=== PATIENT | male | born 1950 | race Caucasian/White ===

== ENCOUNTER 2017-12-01 09:18 | Day surgery (SDC) | payer MEDICARE, BC ==
[2017-12-01] MEDS ORDERED: Midazolam 1 MG/ML 2 ML SDV IV ONE (09:19)
[2017-12-01] MEDS ORDERED: Dexamethasone 4 MG/ML SDV IV ONE (09:19)
[2017-12-01] MEDS ORDERED: Sodium Chloride 0.9% 10 ML Syringe IV ONE (09:19)
[2017-12-01] MEDS ORDERED: Cataract Ophth Solution EYELF ONE (09:30)
[2017-12-01] MEDS ORDERED: Proparacaine 0.5% Ophth Soln 15 ML Bottle EYELF ONE (09:30)
[2017-12-01] MEDS ORDERED: Sodium Chloride 0.9% 10 ML Syringe FLUSH PRN (09:30)
[2017-12-01] MEDS ORDERED: Ondansetron 4 MG/2 ML SDV IVPUSH PRN (09:30)
[2017-12-01] MEDS ORDERED: Povidone-Iodine 5% Sterile Ophth Soln 30 ML Bottle EYELF ONE ×2 (09:30→10:18)
[2017-12-01] MEDS ORDERED: Moxifloxacin 0.5% Ophth Soln 3 ML Bottle EYELF ONE (09:30)
[2017-12-01] MEDS ORDERED: Timolol Maleate 0.5% Ophth Soln 5 ML Bottle EYELF ONE (09:30)
[2017-12-01] MEDS ORDERED: Phenylephrine 10% Ophth Soln 5 ML Bot EYELF PRN (09:30)
[2017-12-01] MEDS ORDERED: Phenylephrine 10% Ophth Soln 5 ML Bot EYELF ONE (09:30)
[2017-12-01] MEDS ORDERED: Acetaminophen 325 MG Tab PO PRN (09:30)
[2017-12-01] MEDS ORDERED: Tetracaine HCl/PF 0.5% 4 ML Bottle EYELF ONE (10:18)
[2017-12-01] MEDS ORDERED: Apraclonidine 0.5% Ophth Soln 5 ML Bot EYELF ONE (10:19)
[2017-12-01] MEDS ORDERED: Lidocaine 1% 30 ML SDV ONE (10:19)
[2017-12-01] MEDS ORDERED: Vancomycin 500 MG SDV EYELF ONE (10:20)
[2017-12-01] MEDS ORDERED: Balanced Salt Solution Ophth Irrig 500 ML Bottle IOCULAR ONE (10:20)
[2017-12-01] MEDS ORDERED: Dexamethasone/Neomycin/Polymyxin B Ophth Oint 3.5 GM Tube EYELF ONE (10:20)
[2017-12-01] MEDS ORDERED: Chondroitin Sulfate/Hyaluronate Sodium Ophth Inj 0.75 ML Syringe EYELF ONE (10:21)
--- NOTE | 2017-12-01 16:33 | OR ---
DATE: 12/01/2017 PREOPERATIVE DIAGNOSIS: Visually significant mixed cataract, left eye. POSTOPERATIVE DIAGNOSIS: Visually significant mixed cataract, left eye. PROCEDURE: Extracapsular cataract extraction with intraocular lens implant, left eye. ANESTHESIA: Topical/local MAC. COMPLICATIONS: None. INDICATION: Mr. Barton was seen in the clinic. He has complained of a progressive decrease in vision. Clinical examination reveals best spectacle corrected vision of 20/40, oncoming light reveals a visual acuity of 20/70. Examination reveals mixed nuclear central cortical and posterior capsular cataract. I explained options to Mr. Barton. I offered cataract surgery and I explained risks, including, but not limited to, infection, retinal detachment, loss of vision, need for additional surgery, and risks associated with anesthesia. We discussed implant options. He has requested a multifocal implant. He understands the increased potential for glare, halo, and dysphotopsia. He also understands that he may still require glasses for some limited activities. No complications occurred. OPERATIVE DESCRIPTION: After informed consent was obtained and the risks, benefits, and alternatives were explained, the patient was brought to the operative suite and topical anesthesia was administered. The patient was then prepped and draped in the sterile fashion and attention was placed on the left eye. A sterile lid speculum was placed into the left eye to allow operative exposure. A full-thickness paracentesis was made in the temporal portion of the operative eye. Preservative-free lidocaine 0.1 mL was injected into the anterior chamber followed by viscoelastic. A full-thickness corneal incision was then made into the anterior chamber. A bent needle cystotome was used to create a small mercedes in the anterior capsule. The capsulorrhexis forceps was then used to create a 360-degree curvilinear capsulorrhexis. The nucleus was then removed using a phacoemulsification handpiece and the remaining cortical material was then removed with irrigation and aspiration handpiece. Following removal of the cortical material, the capsular bag was then inspected and noted to be free of any holes or tears. Viscoelastic was then injected into the capsular bag and the intraocular lens was inserted into the capsular bag. The viscoelastic material was then removed from both the anterior and posterior chambers and from behind the IOL. The lens and capsular bag were then reinspected. The IOL was well centered and the capsular bag intact. The wound and paracentesis sites were inspected and hydrated with balanced saline solution. Both were found to be self- sealing. The intraocular pressure was assessed digitally and found to be within normal range. A good red reflex was noted at the completion of the procedure. No complications occurred during the operation. At the completion of the procedure, Maxitrol, Voltaren, and Iopidine drops were placed into the operative eye. A sterile eye shield was placed over the operative eye and the patient was transported to the postoperative recovery area having tolerated the procedure well. Postoperative instructions were given along with a postoperative appointment. The patient was advised to call with any questions or concerns. [facility] /[id number]
== END 2017-12-01 11:33 | disposition home or self-care (01) ==
LOC: DL.SDS 09:18
PROVIDERS: ATTEND Ophthalmology
DX: H25.812 Combined forms of age-related cataract, left eye (principal); E11.36 Type 2 diabetes mellitus with diabetic cataract; I10 Essential (primary) hypertension; J45.909 Unspecified asthma, uncomplicated; E78.00 Pure hypercholesterolemia, unspecified; E66.9 Obesity, unspecified; N40.1 Benign prostatic hyperplasia with lower urinary tract symptoms; Z68.35 Body mass index [BMI] 35.0-35.9, adult; Z79.4 Long term (current) use of insulin; Z79.899 Other long term (current) drug therapy; Z88.8 Allergy status to other drugs, medicaments and biological substances; Z87.891 Personal history of nicotine dependence
CPT/HCPCS: 66984; A9270; J3370; J7050; 00142; J1100; J2250; V2788

== ENCOUNTER 2017-12-22 10:56 | Day surgery (SDC) | payer MEDICARE, BC ==
[2017-12-22] MEDS ORDERED: Midazolam 1 MG/ML 2 ML SDV IV ONE (10:57)
[2017-12-22] MEDS ORDERED: Sodium Chloride 0.9% 10 ML Syringe IV ONE (10:57)
[2017-12-22] MEDS ORDERED: Dexamethasone 4 MG/ML SDV IV ONE (10:57)
[2017-12-22] MEDS ORDERED: Ondansetron 4 MG/2 ML SDV IVPUSH PRN (11:00)
[2017-12-22] MEDS ORDERED: Acetaminophen 325 MG Tab PO PRN (11:00)
[2017-12-22] MEDS ORDERED: Phenylephrine 10% Ophth Soln 5 ML Bot EYERT PRN (11:00)
[2017-12-22] MEDS ORDERED: Timolol Maleate 0.5% Ophth Soln 5 ML Bottle EYERT ONE (11:00)
[2017-12-22] MEDS ORDERED: Povidone-Iodine 5% Sterile Ophth Soln 30 ML Bottle EYERT ONE ×2 (11:00→11:38)
[2017-12-22] MEDS ORDERED: Proparacaine 0.5% Ophth Soln 15 ML Bottle EYERT ONE (11:00)
[2017-12-22] MEDS ORDERED: Cataract Ophth Solution EYERT ONE (11:00)
[2017-12-22] MEDS ORDERED: Phenylephrine 10% Ophth Soln 5 ML Bot EYERT ONE (11:00)
[2017-12-22] MEDS ORDERED: Moxifloxacin 0.5% Ophth Soln 3 ML Bottle EYERT ONE (11:00)
[2017-12-22] MEDS: Sodium Chloride 0.9% 10 ML Syringe FLUSH PRN ×2 (11:27→11:31)
[2017-12-22] MEDS ORDERED: Povidone-Iodine 5% Sterile Ophth Soln 30 ML Bottle ONE (11:35)
[2017-12-22] MEDS ORDERED: Tetracaine HCl/PF 0.5% 4 ML Bottle EYERT ONE (11:37)
[2017-12-22] MEDS ORDERED: Lidocaine 1% 30 ML SDV INJECT ONE (11:44)
[2017-12-22] MEDS ORDERED: Vancomycin 500 MG SDV EYERT ONE (11:46)
[2017-12-22] MEDS ORDERED: Balanced Salt Solution Ophth Irrig 500 ML Bottle IOCULAR ONE (11:47)
[2017-12-22] MEDS ORDERED: Chondroitin Sulfate/Hyaluronate Sodium Ophth Inj 0.75 ML Syringe EYELF ONE (11:49)
[2017-12-22] MEDS ORDERED: Apraclonidine 0.5% Ophth Soln 5 ML Bot EYERT ONE (11:55)
[2017-12-22] MEDS ORDERED: Dexamethasone/Neomycin/Polymyxin B Ophth Oint 3.5 GM Tube EYERT ONE (11:56)
--- NOTE | 2017-12-22 12:17 | OR ---
DATE: 12/22/2017 PREOPERATIVE DIAGNOSIS: Visually significant mixed cataract, right eye. POSTOPERATIVE DIAGNOSIS: Visually significant mixed cataract, right eye. PROCEDURE: Extracapsular cataract extraction with intraocular lens implant, right eye. ANESTHESIA: Topical/local MAC. COMPLICATIONS: None. INDICATION: Mr. Barton was seen in the clinic. He has complained of a progressive change in vision. His clinical examination reveals visually significant mixed cataract. I explained options; I offered cataract surgery; and I explained risks including but not limited to infection, retinal detachment, loss of vision, and need for additional surgery amongst others. We discussed implant options. He has requested a Symfony implant. I did explain the increased potential for glare halo and dysphotopsia. He is symptomatic, voiced an understanding, and requested the Symfony implant. OPERATIVE DESCRIPTION: After informed consent was obtained and the risks, benefits, and alternatives were explained, the patient was brought to the operative suite and topical anesthesia was administered. The patient was then prepped and draped in the sterile fashion, and attention was placed on the right eye. A sterile lid speculum was placed into the right eye to allow operative exposure. A full-thickness paracentesis was made in the temporal portion of the operative eye. Preservative-free lidocaine 0.1 mL was injected into the anterior chamber followed by viscoelastic. A full-thickness corneal incision was then made into the anterior chamber. A bent needle cystotome was used to create a small mercedes in the anterior capsule. The capsulorrhexis forceps was then used to create a 360-degree curvilinear capsulorrhexis. The nucleus was then removed using a phacoemulsification handpiece, and the remaining cortical material was then removed with irrigation and aspiration handpiece. Following removal of the cortical material, the capsular bag was then inspected and noted to be free of any holes or tears. Viscoelastic was then injected into the capsular bag, and the intraocular lens was inserted into the capsular bag. The implant was oriented to correspond with preoperative corneal osullivan made with the patient in the upright position. The viscoelastic material was then removed from both the anterior and posterior chambers and from behind the IOL. The lens and capsular bag were then reinspected. The IOL was well centered and the capsular bag intact. The wound and paracentesis sites were inspected and hydrated with balanced saline solution. Both were found to be self-sealing. The intraocular pressure was assessed digitally and found to be within normal range. A good red reflex was noted at the completion of the procedure. No complications occurred during the operation. At the completion of the procedure, Maxitrol, Voltaren, and Iopidine drops were placed into the operative eye. A sterile eye shield was placed over the operative eye, and the patient was transported to the postoperative recovery area having tolerated the procedure well. Postoperative instructions were given along with a postoperative appointment. The patient was advised to call with any questions or concerns. [facility] /[id number]
== END 2017-12-22 12:45 | disposition home or self-care (01) ==
LOC: DL.SDS 10:56
PROVIDERS: ATTEND Ophthalmology
DX: H26.9 Unspecified cataract (principal); I10 Essential (primary) hypertension; E11.65 Type 2 diabetes mellitus with hyperglycemia; E78.1 Pure hyperglyceridemia; M51.34 Other intervertebral disc degeneration, thoracic region; E66.9 Obesity, unspecified; N40.1 Benign prostatic hyperplasia with lower urinary tract symptoms; J45.909 Unspecified asthma, uncomplicated; Z90.49 Acquired absence of other specified parts of digestive tract; Z79.4 Long term (current) use of insulin; Z79.899 Other long term (current) drug therapy; Z79.82 Long term (current) use of aspirin; Z88.8 Allergy status to other drugs, medicaments and biological substances; Z68.39 Body mass index [BMI] 39.0-39.9, adult; Z87.891 Personal history of nicotine dependence
CPT/HCPCS: 00140; 66984; A9270; J1100; J2250; J3370; J7050; V2787

== ENCOUNTER 2019-05-02 10:25 | Emergency (ER) | payer MEDICARE, BC ==
[~2019-05-02 10:25] MED LIST: Sodium Chloride 0.9% 10 ML Syringe FLUSH PRN
[2019-05-02] MEDS ORDERED: 50% Dextrose in Water 50 ML Syringe IVPUSH ONE (10:35)
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
[2019-05-02] MEDS ORDERED: Sodium Chloride 0.9% 1,000 ML IV ONE (10:53)
[2019-05-02 11:08] LABS: ANION GAP 11.6; CHLORIDE,CL 100 mmol/L (101-111); SODIUM,NA 139 mmol/L (135-145)
== END 2019-05-02 12:56 | disposition home or self-care (01) ==
LOC: DL.ED 10:25
DX: J06.9 Acute upper respiratory infection, unspecified (principal); E11.649 Type 2 diabetes mellitus with hypoglycemia without coma; I10 Essential (primary) hypertension; E78.00 Pure hypercholesterolemia, unspecified; J45.909 Unspecified asthma, uncomplicated; Z91.040 Latex allergy status; Z88.8 Allergy status to other drugs, medicaments and biological substances; Z79.82 Long term (current) use of aspirin; Z79.899 Other long term (current) drug therapy; Z79.4 Long term (current) use of insulin
CPT/HCPCS: 36415; 71046; 80053; 81003; 82962; 84484; 85025; 85610; 93005; 96361; 96374; 99285-25; G0480; J7030; J7060

== ENCOUNTER 2019-10-14 22:02 | Emergency (ER) | payer MEDICARE, BC ==
[2019-10-14] MEDS ORDERED: Sodium Chloride 0.9% 10 ML Syringe FLUSH PRN (22:27)
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
[2019-10-14 23:04] LABS: ANION GAP 14.8; CHLORIDE,CL 96 mmol/L (101-111); SODIUM,NA 133 mmol/L (135-145)
== END 2019-10-15 04:10 | disposition home or self-care (01) ==
LOC: DL.ED 22:02
DX: G89.18 Other acute postprocedural pain (principal); M25.561 Pain in right knee; E11.9 Type 2 diabetes mellitus without complications; E78.00 Pure hypercholesterolemia, unspecified; I10 Essential (primary) hypertension; E66.9 Obesity, unspecified; Z68.39 Body mass index [BMI] 39.0-39.9, adult; J45.909 Unspecified asthma, uncomplicated; Z91.040 Latex allergy status; Z88.8 Allergy status to other drugs, medicaments and biological substances; Z79.4 Long term (current) use of insulin; Z79.899 Other long term (current) drug therapy
CPT/HCPCS: 36415; 73560-RT; 80053; 83605; 85025; 85379; 85651; 86140; 87040; 93971; 99283; 99284-25

== ENCOUNTER 2020-01-22 08:41 | Emergency (ER) | payer MEDICARE, BC ==
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
[2020-01-22] MEDS ORDERED: Sodium Chloride 0.9% 10 ML Syringe FLUSH PRN (09:15)
[2020-01-22 09:53] LABS: CHLORIDE,CL 97 mmol/L (98-107); SODIUM,NA 136 mmol/L (136-145)
--- NOTE | 2020-01-22 10:30 | CR ---
PROCEDURE INFORMATION: Exam: XR Chest, 2 Views Exam date and time: 01/22/2020 9:28 AM Age: 69 years old Clinical indication: Shortness of breath; Additional info: SOB TECHNIQUE: Imaging protocol: XR of the chest Views: 2 views. COMPARISON: CR Chest 2V 05/02/2019 11:52 AM FINDINGS: Lungs: Unremarkable. No consolidation. Pleural space: Unremarkable. No pleural effusion. No pneumothorax. Heart/Mediastinum: The cardiomediastinal silhouette is fairly stable in appearance. Bones/joints: Degenerative changes again involve the spine. IMPRESSION: No evidence for acute pulmonary disease.
--- NOTE | 2020-01-22 11:58 | CT ---
PROCEDURE INFORMATION: Exam: CT Abdomen And Pelvis Without Contrast Exam date and time: 01/22/2020 11:38 AM Age: 69 years old Clinical indication: Abdominal pain; Flank; Right; Prior surgery; Surgery date: 6+ months; Surgery type: Gallbladder removed; Patient HX: History of renal stones in 1998; Additional info: Right flank pain, wbc 13.0 TECHNIQUE: Imaging protocol: Computed tomography of the abdomen and pelvis without contrast. Radiation optimization: All CT scans at this facility use at least one of these dose optimization techniques: automated exposure control; mA and/or kV adjustment per patient size (includes targeted exams where dose is matched to clinical indication); or iterative reconstruction. COMPARISON: CT - Chest Abdomen Pelvis w Cont 02/12/2019 10:42:15 PM FINDINGS: Limitations: Evaluation is somewhat limited by lack of IV contrast. Lungs: There is mild atelectasis/scarring at the right lung base, with minor atelectasis at the left base. Liver: The liver is fatty in density. It again has a mildly nodular contour, as may be seen with cirrhosis. Gallbladder and bile ducts: Cholecystectomy clips are present. Pancreas: Grossly unremarkable. Spleen: Grossly unremarkable. Adrenals: Grossly unremarkable. Kidneys and ureters: There is no hydronephrosis, and no renal or ureteral calculus is identified. The right kidney appears grossly unremarkable. The left kidney again contains a 2.5 cm cyst, not requiring follow-up. It appears otherwise grossly unremarkable. Stomach and bowel: The unopacified small bowel is not significantly distended to suggest obstruction. There is again mild descending and moderate sigmoid colonic diverticulosis without evidence for diverticulitis. The large bowel is otherwise grossly unremarkable in appearance. Appendix: The appendix appears normal. Intraperitoneal space: No free air or significant free fluid. Vasculature: The abdominal aorta is nonaneurysmal. Atherosclerotic vascular calcifications are again present. Lymph nodes: No gross pathologic lymphadenopathy. Bladder: Grossly unremarkable. Reproductive: Unremarkable as visualized. Bones/joints: Degenerative changes again involve the spine and hips. There are similar areas of curvilinear sclerosis in the bilateral femoral heads, compatible with avascular necrosis. There is no collapse of the articular contour of the femoral heads. Soft tissues: Small fat containing umbilical and bilateral inguinal hernias are again present. IMPRESSION: 1. No hydronephrosis or renal or ureteral calculus. 2. Fatty liver. As on 07/07/19, it has a mildly nodular contour, as may be seen with cirrhosis. 3. Persistent left-sided colonic diverticulosis without evidence for diverticulitis. 4. Similar small fat containing umbilical and bilateral inguinal hernias. 5. Other stable nonurgent findings as described. COMMENTS: Depending on suspected etiology of symptoms, consider a targeted ultrasound or contrast enhanced exam.
== END 2020-01-22 12:50 | disposition home or self-care (01) ==
LOC: DL.ED 08:41
DX: R10.9 Unspecified abdominal pain (principal); E11.10 Type 2 diabetes mellitus with ketoacidosis without coma; I10 Essential (primary) hypertension; E66.9 Obesity, unspecified; J45.909 Unspecified asthma, uncomplicated; Z79.4 Long term (current) use of insulin; Z88.8 Allergy status to other drugs, medicaments and biological substances; Z91.040 Latex allergy status; Z79.82 Long term (current) use of aspirin; Z79.899 Other long term (current) drug therapy; Z68.36 Body mass index [BMI] 36.0-36.9, adult
CPT/HCPCS: 36415; 71046; 74176; 80053; 81001; 83880; 84484; 85025; 99283; 99285-25

== ENCOUNTER 2020-06-09 14:31 | Emergency (ER) | payer MEDICARE, BC ==
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
[2020-06-09] MEDS ORDERED: Albuterol 6.7 GM Inhaler INH ONE (14:50)
[2020-06-09] MEDS ORDERED: Famotidine 20 MG Tab PO ONE (14:52)
--- NOTE | 2020-06-09 15:24 | CR ---
PROCEDURE INFORMATION: Exam: XR Chest, 1 View Exam date and time: 06/09/2020 3:10 PM Age: 69 years old Clinical indication: Other: Copd; Additional info: Covid +, HX copd TECHNIQUE: Imaging protocol: XR of the chest Views: 1 view. COMPARISON: CT Chest w Cont 01/23/2020 3:37 PM FINDINGS: Lungs: Patchy airspace density is present within the right lower lobe. Finding is concerning for pneumonia. This could be related the patient's known COVID-19 infection. Pleural space: Unremarkable. No pleural effusion. No pneumothorax. Heart/Mediastinum: Unremarkable. No cardiomegaly. Bones/joints: Unremarkable. IMPRESSION: 1. Multilobar pneumonia compatible with COVID-19.
[2020-06-09 15:57] LABS: ANION GAP 13.4 mEq/L (7-13); CHLORIDE,CL 92 mmol/L (98-107); SODIUM,NA 131 mmol/L (136-145)
== END 2020-06-09 18:10 | disposition home or self-care (01) ==
LOC: DL.ED 14:31
DX: U07.1 COVID-19 (principal); I12.9 Hypertensive chronic kidney disease with stage 1 through stage 4 chronic kidney disease, or unspecified chronic kidney disease; E11.22 Type 2 diabetes mellitus with diabetic chronic kidney disease; N18.9 Chronic kidney disease, unspecified; E66.9 Obesity, unspecified; E78.00 Pure hypercholesterolemia, unspecified; J45.909 Unspecified asthma, uncomplicated; Z87.09 Personal history of other diseases of the respiratory system; M19.90 Unspecified osteoarthritis, unspecified site; Z79.82 Long term (current) use of aspirin; Z79.899 Other long term (current) drug therapy; Z79.4 Long term (current) use of insulin; Z91.040 Latex allergy status; Z88.8 Allergy status to other drugs, medicaments and biological substances; Z88.6 Allergy status to analgesic agent
CPT/HCPCS: 36415; 71045; 80053; 82728; 83605; 84484; 85025; 85379; 85610; 85730; 86140; 99284; A9270

== ENCOUNTER 2020-07-26 14:43 | Observation (INO) | payer MEDICARE, BC ==
[2020-07-26] MEDS ORDERED: Ondansetron 4 MG/2 ML SDV IVPUSH PRN (15:19)
[2020-07-26] MEDS ORDERED: 50% Dextrose in Water 50 ML Syringe IV PRN (16:29)
[2020-07-26] MEDS ORDERED: Glucagon,Human Recombinant 1 MG Vial IM PRN (16:29)
[2020-07-26] MEDS ORDERED: methylPREDNISolone Sodium Succinate 125 MG/2 ML SDV IVPUSH ONE (16:30)
[2020-07-26] MEDS ORDERED: Metoclopramide 10 MG/2 ML SDV IVPUSH ONE (16:30)
[2020-07-26] MEDS: Sodium Chloride 0.9% 1,000 ML IV SCH (17:46)
[2020-07-26] MEDS: cefTRIAXone 1 GM in Sodium Chloride 0.9% 50 ML IV SCH (18:04)
--- NOTE | 2020-07-26 18:06 | CR ---
PROCEDURE INFORMATION: Exam: XR Chest, 1 View Exam date and time: 07/26/2020 5:51 PM Age: 70 years old Clinical indication: Cough TECHNIQUE: Imaging protocol: XR of the chest Views: 1 view. COMPARISON: CR Chest 1V Frontal 06/09/2020 3:10 PM FINDINGS: Lungs: No suspicious pulmonary nodules or areas of lung consolidation. Pleural space: Costophrenic angles are sharp. No pneumothorax. Heart/Mediastinum: Unremarkable. No cardiomegaly. Bones/joints: Age appropriate. IMPRESSION: 1. No active disease of the chest. 2. No significant interval change when compared to the CR Chest 1V Frontal 06/09/2020 3:10 PM.
[2020-07-26] MEDS: Acetaminophen 325 MG Tab PO PRN (18:16)
[2020-07-26] MEDS ORDERED: Sodium Chloride 0.9% 10 ML Syringe FLUSH PRN (18:20)
[2020-07-26] MEDS ORDERED: Albuterol 6.7 GM Inhaler INH PRN (18:38)
[2020-07-26] MEDS ORDERED: FLUTICASONE FUROATE NASBOTH PRN (18:38)
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
[2020-07-26] MEDS: Azithromycin 500 MG in Sodium Chloride 0.9% 250 ML IV SCH (18:50)
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
[2020-07-26] MEDS: predniSONE 5 MG Tab PO SCH (21:53)
[2020-07-26] MEDS: Insulin Glarg,Human.Rec.Analog 100 Unit/ML SUBCUT SCH (22:00)
[2020-07-26] MEDS: Hydrochlorothiazide 25 MG Tab PO SCH (22:01)
[2020-07-26] MEDS: Tamsulosin 0.4 MG Cap.ER PO SCH (22:01)
[2020-07-26] MEDS: Montelukast 10 MG Tab PO SCH (22:02)
[2020-07-27 07:05] LABS: ANION GAP 17.4 mEq/L (7-13); CHLORIDE,CL 96 mmol/L (98-107); SODIUM,NA 136 mmol/L (136-145)
[2020-07-27] MEDS: Sodium Chloride 0.9% 1,000 ML IV SCH (08:53)
[2020-07-27] MEDS ORDERED: Non-Formulary Medication 1 Each (Canagliflozin [Invokana] 300 MG) PO SCH (09:00)
[2020-07-27] MEDS ORDERED: Potassium Chloride 10 MEQ Tab.ER PO ONE (09:22)
--- NOTE | 2020-07-27 10:45 | PCM.PN ---
- General Info Date of Service: 07/27/20 Subjective Update: Patient has no new complaint today Indicates the headache has improved Also denies having left ear pain. No fever and no chills. - Review of Systems General: Reports: Weakness, Malaise HEENT: Reports: No Symptoms Pulmonary: Reports: No Symptoms Cardiovascular: Reports: No Symptoms Gastrointestinal: Reports: No Symptoms Musculoskeletal: Reports: No Symptoms - Patient Data Vitals - Most Recent: Last Vital Signs Temp 35.8 C L 07/27/20 08:00 Pulse 80 07/27/20 08:00 Resp 20 07/27/20 08:00 BP 130/66 07/27/20 08:00 Pulse Ox 94 L 07/27/20 08:00 Weight - Most Recent: 97.704 kg I&O - Last 24 Hours: Intake & Output 07/26/20 07/27/20 07/27/20 22:59 06:59 14:59 Intake Total 250 450 Output Total 100 300 Balance 150 150 Lab Results Last 24 Hours: Laboratory Results - last 24 hr 07/26/20 07/26/20 07/26/20 Range/Units 16:20 17:08 20:55 WBC (5.0-10.0) 10^3/uL RBC (4.6-6.2) 10^6/uL Hgb (14.0-18.0) g/dL Hct (40.0-54.0) % MCV (80-100) fL MCH (27.0-34.0) pg MCHC (33.0-35.0) g/dL Plt Count (150-450) 10^3/uL Neut % (Auto) (42.2-75.2) % Lymph % (Auto) (20.5-50.1) % Travis % (Auto) (2-8) % Eos % (Auto) (1.0-3.0) % Baso % (Auto) (0.0-1.0) % Add Manual Diff Neutrophils % (Manual) (42-75) % Band Neutrophils % % Lymphocytes % (Manual) (20-50) % Monocytes % (Manual) (2-8) % Sodium (136-145) mmol/L Potassium (3.5-5.1) mmol/L Chloride (98-107) mmol/L Carbon Dioxide (21-32) mmol/L Anion Gap (7-13) mEq/L BUN (7-18) mg/dL Creatinine (0.70-1.30) mg/dL Est Cr Clr Drug Dosing mL/min Estimated GFR (MDRD) BUN/Creatinine Ratio (No establ ref range) Glucose (74-99) mg/dL POC Glucose 122 H 179 H (70-105) mg/dl Calcium (8.5-10.1) mg/dL Total Bilirubin (0.2-1.0) mg/dL AST (15-37) U/L ALT (16-63) U/L Alkaline Phosphatase (46-116) U/L Total Protein (6.4-8.2) g/dL Albumin (3.4-5.0) g/dL Globulin Albumin/Globulin Ratio Urine Color Yellow (YELLOW) Urine Appearance Clear (CLEAR) Urine pH 6.0 (5.0-9.0) Ur Specific [place] 1.015 (1.005-1.030) Urine Protein 30 H (NEGATIVE) Urine Glucose (UA) 500 H (NEGATIVE) Urine Ketones Negative (NEGATIVE) Urine Occult Blood Trace-lysed H (NEGATIVE) Urine Nitrite Negative (NEGATIVE) Urine Bilirubin Negative (NEGATIVE) Urine Urobilinogen 0.2 (0.2-1.0) mg/dL Ur Leukocyte Esterase Negative (NEGATIVE) Urine RBC 0-5 /HPF Urine WBC Not seen (0-5/HPF) /HPF Ur Epithelial Cells Few (NOT SEEN) /HPF Urine Bacteria Rare (0-FEW/HPF) /HPF Urine Yeast Few H (NOT SEEN) /HPF 07/27/20 07/27/20 07/27/20 Range/Units 06:02 06:02 07:54 WBC 10.7 H (5.0-10.0) 10^3/uL RBC 3.87 L (4.6-6.2) 10^6/uL Hgb 12.2 L D (14.0-18.0) g/dL Hct 36.3 L (40.0-54.0) % MCV 93.8 (80-100) fL MCH 31.5 (27.0-34.0) pg MCHC 33.6 (33.0-35.0) g/dL Plt Count 251 D (150-450) 10^3/uL Neut % (Auto) 86.9 H (42.2-75.2) % Lymph % (Auto) 6.4 L (20.5-50.1) % Travis % (Auto) 6.0 (2-8) % Eos % (Auto) 0.0 L (1.0-3.0) % Baso % (Auto) 0.7 (0.0-1.0) % Add Manual Diff Yes Neutrophils % (Manual) 79 H (42-75) % Band Neutrophils % 12 % Lymphocytes % (Manual) 7 L (20-50) % Monocytes % (Manual) 2 (2-8) % Sodium 136 (136-145) mmol/L Potassium 3.4 L (3.5-5.1) mmol/L Chloride 96 L (98-107) mmol/L Carbon Dioxide 26 (21-32) mmol/L Anion Gap 17.4 H (7-13) mEq/L BUN 19 H (7-18) mg/dL Creatinine 1.09 (0.70-1.30) mg/dL Est Cr Clr Drug Dosing 62.92 mL/min Estimated GFR (MDRD) > 60 BUN/Creatinine Ratio 17.4 (No establ ref range) Glucose 159 H (74-99) mg/dL POC Glucose 146 H (70-105) mg/dl Calcium 9.3 (8.5-10.1) mg/dL Total Bilirubin 0.3 (0.2-1.0) mg/dL AST 8 L (15-37) U/L ALT 14 L (16-63) U/L Alkaline Phosphatase 39 L (46-116) U/L Total Protein 7.5 (6.4-8.2) g/dL Albumin 2.8 L (3.4-5.0) g/dL Globulin 4.7 Albumin/Globulin Ratio 0.60 Urine Color (YELLOW) Urine Appearance (CLEAR) Urine pH (5.0-9.0) Ur Specific [place] (1.005-1.030) Urine Protein (NEGATIVE) Urine Glucose (UA) (NEGATIVE) Urine Ketones (NEGATIVE) Urine Occult Blood (NEGATIVE) Urine Nitrite (NEGATIVE) Urine Bilirubin (NEGATIVE) Urine Urobilinogen (0.2-1.0) mg/dL Ur Leukocyte Esterase (NEGATIVE) Urine RBC /HPF Urine WBC (0-5/HPF) /HPF Ur Epithelial Cells (NOT SEEN) /HPF Urine Bacteria (0-FEW/HPF) /HPF Urine Yeast (NOT SEEN) /HPF Med Orders - Current: Current Medications Acetaminophen (Tylenol) 650 mg PO Q4H PRN PRN Reason: Pain (Mild 1-3)/fever Last Admin: 07/26/20 18:16 Dose: 650 mg Documented by: Albuterol (Proventil Hfa) 0 gm INH Q4H PRN PRN Reason: Shortness of Breath Dextrose/Water (Dextrose 50% In Water) 50 ml IV ASDIRECTED PRN PRN Reason: Hypoglycemia Enoxaparin Sodium (Lovenox) 40 mg SUBCUT DAILY [facility] Finasteride (Proscar) 5 mg PO DAILY [facility] Glucagon (Glucagen) 1 mg IM ASDIRECTED PRN PRN Reason: Hypoglycemia Hydrochlorothiazide (Hydrochlorothiazide) 25 mg PO DAILY [facility] Last Admin: 07/26/20 22:01 Dose: 25 mg Documented by: Sodium Chloride (Normal Saline) 1,000 mls @ 75 mls/hr IV ASDIRECTED [facility] Last Admin: 07/27/20 08:53 Dose: 75 mls/hr Documented by: Ceftriaxone Sodium 1 gm/ (Sodium Chloride) 50 mls @ 100 mls/hr IV Q24H [facility] Last Admin: 07/26/20 18:04 Dose: 100 mls/hr Documented by: Azithromycin 500 mg/ Sodium (Chloride) 250 mls @ 250 mls/hr IV Q24H [facility] Last Infusion: 07/26/20 19:50 Dose: Infused Documented by: Insulin Glargine (Lantus) 60 unit SUBCUT BEDTIME [facility] Last Admin: 07/26/20 22:00 Dose: 60 units Documented by: Losartan Potassium (Cozaar) 25 mg PO DAILY [facility] Magnesium Oxide (Magnesium Oxide) 500 mg PO DAILY [facility] Montelukast Sodium (Singulair) 10 mg PO BEDTIME [facility] Last Admin: 07/26/20 22:02 Dose: 10 mg Documented by: Non-Formulary Medication (Canagliflozin [Invokana]) 300 mg PO DAILY [facility] Non-Formulary Medication (Fluticasone Furoate [Flonase Sensimist]) 1 mcg NASBOTH BID PRN PRN Reason: Allergies Non-Formulary Medication (Cetirizine [Zyrtec]) 10 mg PO DAILY [facility] Ondansetron HCl (Zofran) 4 mg IVPUSH Q6H PRN PRN Reason: Nausea/Vomiting Prednisone (Prednisone) 5 mg PO DAILY [facility] Last Admin: 07/26/20 21:53 Dose: Not Given Documented by: Prednisone (Prednisone) 40 mg PO WITHBREAKFAST [facility] Stop: 07/29/20 08:00 Sodium Chloride (Saline Flush) 10 ml FLUSH ASDIRECTED PRN PRN Reason: Keep Vein Open Tamsulosin HCl (Flomax) 0.4 mg PO BEDTIME [facility] Last Admin: 07/26/20 22:01 Dose: 0.4 mg Documented by: Discontinued Medications Methylprednisolone Sodium Succinate (Solu-Medrol) 125 mg IVPUSH ONETIME ONE Stop: 07/26/20 16:31 Last Admin: 07/26/20 18:02 Dose: 125 mg Documented by: Metoclopramide HCl (Reglan) 10 mg IVPUSH ONETIME ONE Stop: 07/26/20 16:31 Last Admin: 07/26/20 17:58 Dose: 10 mg Documented by: Potassium Chloride (Klor-Con 10) 40 meq PO ONETIME ONE Stop: 07/27/20 09:23 - Exam General: Alert, Oriented, Cooperative Neck: Supple Lungs: Clear to Auscultation, Normal Respiratory Effort Cardiovascular: Regular Rate, Regular Rhythm GI/Abdominal Exam: Normal Bowel Sounds, Soft, Non-Tender, No Organomegaly, No Distention, No Abnormal Bruit, No Mass, Pelvis Stable Sepsis Event Note - Evaluation Sepsis Screening Result: No Definite Risk - Focused Exam Vital Signs: Vital Signs Temp Pulse Resp BP BP Pulse Ox 07/27/20 08:00 35.8 C L 80 20 130/66 94 L 07/27/20 00:00 35.6 C L 89 20 110/72 97 - Problem List Review Problem List Initiated/Reviewed/Updated: Yes - My Orders Last 24 Hours: My Active Orders 07/26/20 15:19 Patient Status [ADT] Routine Blood Glucose Check, Bedside [RC] QIDACANDBED Oxygen Therapy [RC] .PRN Up ad Antoinette [RC] ASDIRECTED VTE/DVT Education [RC] PER UNIT ROUTINE Vital Signs [RC] 00,04,08,12,16,20 OT Evaluation and Treatment [CONS] Routine PT Evaluation and Treatment [CONS] Routine Acetaminophen [TylenoL] 650 mg PO Q4H PRN Ondansetron [Zofran] 4 mg IVPUSH Q6H PRN Resuscitation Status Routine 07/26/20 15:21 Intake and Output [RC] QSHIFT 07/26/20 15:30 Sodium Chloride 0.9% [Normal Saline] 1,000 ml IV ASDIRECTED 07/26/20 16:29 Dextrose 50% in Water 50 ml IV ASDIRECTED PRN Glucagon,Human Recombinant [GlucaGen] 1 mg IM ASDIRECTED PRN 07/26/20 17:00 Azithromycin [Zithromax] 500 mg Sodium Chloride 0.9% [Normal Saline (AdvBag)] 250 ml IV Q24H 07/26/20 Dinner Consistent Carbohydrate Diet [DIET] 07/26/20 18:00 cefTRIAXone [Rocephin] 1 gm Sodium Chloride 0.9% [Normal Saline] 50 ml IV Q24H 07/26/20 18:20 Peripheral IV Care [RC] 21 Sodium Chloride 0.9% [Saline Flush] 10 ml FLUSH ASDIRECTED PRN Peripheral IV Insertion Adult [OM.PC] Routine 07/26/20 18:38 Albuterol [Proventil HFA] 0 gm INH Q4H PRN Fluticasone Furoate [Flonase Sensimist] 1 mcg NASBOTH BID PRN 07/26/20 18:41 RT Post Treatment Assessment [RC] Click to Edit RT Pre-Treatment Assessment [RC] Click to Edit 07/26/20 18:45 hydroCHLOROthiazide 25 mg PO DAILY predniSONE 5 mg PO DAILY 07/26/20 21:00 Insulin Glarg,Human.Rec.Analog [LantUS] 60 unit SUBCUT BEDTIME Montelukast [Singulair] 10 mg PO BEDTIME Tamsulosin [Flomax] 0.4 mg PO BEDTIME 07/27/20 09:00 Canagliflozin [Invokana] 300 mg PO DAILY Cetirizine [ZyrTEC] 10 mg PO DAILY Enoxaparin [Lovenox] 40 mg SUBCUT DAILY Finasteride [Proscar] 5 mg PO DAILY Losartan [Cozaar] 25 mg PO DAILY Magnesium Oxide 500 mg PO DAILY 07/28/20 08:00 predniSONE 40 mg PO WITHBREAKFAST 07/29/20 08:00 Brain wo Cont [MR] Routine - Plan Plan:: #. Headache/ear ache Possibly due to migraine. May also be due to dehydration #. Diabetes mellitus type 2 Reasonable control Has been on oral hypoglycemic agents as well as insulin #. Chronic kidney disease Serum creatinine is at 1.3 #. Hypertension Patient is on both lisinopril and losartan. Also on hydrochlorothiazide Plan: Continue intravenous hydration Start patient on prednisone 40 mg daily Monitor patient for the next 24 hours. If he continues to do well without headache we will plan to discharge. However if headache recurs, will proceed to transfer to higher level of care for MRI of the brain.
[2020-07-27] MEDS: Hydrochlorothiazide 25 MG Tab PO SCH (11:31)
[2020-07-27] MEDS: predniSONE 5 MG Tab PO SCH (11:31)
[2020-07-27] MEDS: Finasteride 5 MG Tab PO SCH (11:31)
[2020-07-27] MEDS: Losartan 25 MG Tab PO SCH (11:32)
[2020-07-27] MEDS: Enoxaparin 40 MG/0.4 ML Syringe SUBCUT SCH (11:36)
[2020-07-27] MEDS: Azithromycin 500 MG in Sodium Chloride 0.9% 250 ML IV SCH (17:07)
[2020-07-27] MEDS: Acetaminophen 325 MG Tab PO PRN (17:20)
[2020-07-27] MEDS: cefTRIAXone 1 GM in Sodium Chloride 0.9% 50 ML IV SCH (18:18)
[2020-07-27] MEDS: Tamsulosin 0.4 MG Cap.ER PO SCH (20:55)
[2020-07-27] MEDS: Montelukast 10 MG Tab PO SCH (20:55)
[2020-07-27] MEDS: Insulin Glarg,Human.Rec.Analog 100 Unit/ML SUBCUT SCH (20:56)
[2020-07-28] MEDS: Sodium Chloride 0.9% 1,000 ML IV SCH (00:55)
[2020-07-28] MEDS: Acetaminophen 325 MG Tab PO PRN ×2 (01:52→08:50)
[2020-07-28] MEDS ORDERED: predniSONE 20 MG Tab PO SCH (08:00)
[2020-07-28] MEDS: Finasteride 5 MG Tab PO SCH (08:50)
[2020-07-28] MEDS: Losartan 25 MG Tab PO SCH (08:50)
[2020-07-28] MEDS: Hydrochlorothiazide 25 MG Tab PO SCH (08:50)
[2020-07-28] MEDS: Enoxaparin 40 MG/0.4 ML Syringe SUBCUT SCH (08:50)
[2020-07-28] MEDS: predniSONE 5 MG Tab PO SCH (08:50)
--- NOTE | 2020-07-28 10:20 | PCM.DCSUM1 ---
Discharge Summary - Hospital Course Free Text/Narrative:: Is a 70-year-old man with medical history of diabetes mellitus, hypertension, chronic kidney disease. The patient presented with complaint of headache and left earache. Had a CT scan which was negative. Patient was treated with Solu- Medrol and Reglan which resulted in 24-hour improvement. However the headache recurred. He has had this headache for more than 2 months and it is often debilitating. Patient will be transferred to higher level of care for MRI of the brain and neurology consultation #. Headache/ear ache Possibly due to migraine. May also be due to dehydration #. Diabetes mellitus type 2 Reasonable control Has been on oral hypoglycemic agents as well as insulin #. Chronic kidney disease Serum creatinine is at 1.3 #. Hypertension Patient is on both lisinopril and losartan. Also on hydrochlorothiazide Diagnosis: Stroke: No - Discharge Data Discharge Date: 07/28/20 Discharge Disposition: DC/Tfer to Acute Hospital 02 Condition: Good - Referral to Home Health Primary Care Physician: Dennys Walker MD - Patient Summary/Data Consults: Consultations 07/26/20 15:19 OT Evaluation and Treatment [CONS] Routine PT Evaluation and Treatment [CONS] Routine - Discharge Plan Home Medications: Home Meds Ascorbic Acid [Vitamin C] 500 mg PO BID 11/26/17 [History] Aspirin/Calcium Carbonate/Mag [Aspirin Buffered] 325 mg PO DAILY 11/26/17 [History] Cetirizine [ZyrTEC] 10 mg PO DAILY 11/26/17 [History] Dulaglutide [Trulicity] 1.5 mg SQ .SUN 11/26/17 [History] Fenofibrate 160 mg PO DAILY 11/26/17 [History] Finasteride [Proscar] 5 mg PO DAILY 11/26/17 [History] Insulin Degludec [Tresiba Flextouch U-200] 60 units SQ BEDTIME 11/26/17 [History] Losartan [Cozaar] 25 mg PO DAILY 11/26/17 [History] Montelukast [Singulair] 10 mg PO BEDTIME 11/26/17 [History] Sennosides/Docusate Sodium [Senna-Docusate Sodium Tablet] 1 tab PO BID PRN 11/26/17 [History] lisinopriL [Prinivil] 5 mg PO DAILY 11/26/17 [History] metFORMIN HCl [Metformin HCl] 1,000 mg PO BIDMEALS 11/26/17 [History] Canagliflozin [Invokana] 300 mg PO DAILY 12/20/17 [History] Fluticasone Furoate [Flonase Sensimist] 1 mcg NASBOTH BID PRN 05/02/19 [History] Omeprazole 20 mg PO BIDMEALS 05/02/19 [History] Tamsulosin [Flomax] 0.4 mg PO BEDTIME 05/02/19 [History] hydroCHLOROthiazide [Hydrochlorothiazide] 25 mg PO DAILY 05/02/19 [History] Acetaminophen [Tylenol Extra Strength] 500 mg PO Q4H PRN 01/22/20 [History] metHOTREXate sodium [Methotrexate] 17.5 mg PO .SUN 01/22/20 [History] Albuterol Sulfate [Albuterol Sulfate Hfa] 2 puff IH Q4H PRN 07/26/20 [History] Folic Acid 1 mg PO DAILY 07/26/20 [History] Furosemide [Lasix] 40 mg PO DAILY PRN 07/26/20 [History] Insulin Aspart [NovoLOG] 10 - 15 unit SQ ASDIRECTED PRN 07/26/20 [History] Magnesium Oxide [Magnesium] 500 mg PO DAILY 07/26/20 [History] predniSONE [Prednisone] 5 mg PO DAILY 07/26/20 [History] - Discharge Summary/Plan Comment DC Time >30 min.: No - Review of Systems General: Reports: Malaise HEENT: Reports: Headaches Pulmonary: Reports: No Symptoms Cardiovascular: Reports: No Symptoms Gastrointestinal: Reports: No Symptoms Musculoskeletal: Reports: No Symptoms - Patient Data Vitals - Most Recent: Last Vital Signs Temp 36.1 C 07/28/20 08:50 Pulse 79 07/28/20 08:50 Resp 20 07/28/20 08:50 BP 123/68 07/28/20 08:50 Pulse Ox 97 07/28/20 08:50 Weight - Most Recent: 97.704 kg I&O - Last 24 hours: Intake & Output 07/27/20 07/28/20 07/28/20 22:59 06:59 14:59 Intake Total 250 3103 Balance 250 3103 Lab Results - Last 24 hrs: Laboratory Results - last 24 hr 07/27/20 07/27/20 07/27/20 Range/Units 11:51 16:27 20:48 POC Glucose 152 H 211 H 246 H (70-105) mg/dl 07/28/20 Range/Units 07:45 POC Glucose 104 (70-105) mg/dl Med Orders - Current: Current Medications Acetaminophen (Tylenol) 650 mg PO Q4H PRN PRN Reason: Pain (Mild 1-3)/fever Last Admin: 07/28/20 08:50 Dose: 650 mg Documented by: Albuterol (Proventil Hfa) 0 gm INH Q4H PRN PRN Reason: Shortness of Breath Dextrose/Water (Dextrose 50% In Water) 50 ml IV ASDIRECTED PRN PRN Reason: Hypoglycemia Enoxaparin Sodium (Lovenox) 40 mg SUBCUT DAILY [facility] Last Admin: 07/28/20 08:50 Dose: 40 mg Documented by: Finasteride (Proscar) 5 mg PO DAILY [facility] Last Admin: 07/28/20 08:50 Dose: 5 mg Documented by: Glucagon (Glucagen) 1 mg IM ASDIRECTED PRN PRN Reason: Hypoglycemia Hydrochlorothiazide (Hydrochlorothiazide) 25 mg PO DAILY [facility] Last Admin: 07/28/20 08:50 Dose: 25 mg Documented by: Sodium Chloride (Normal Saline) 1,000 mls @ 75 mls/hr IV ASDIRECTED [facility] Last Admin: 07/28/20 00:55 Dose: 75 mls/hr Documented by: Ceftriaxone Sodium 1 gm/ (Sodium Chloride) 50 mls @ 100 mls/hr IV Q24H [facility] Last Infusion: 07/27/20 20:59 Dose: Infused Documented by: Azithromycin 500 mg/ Sodium (Chloride) 250 mls @ 250 mls/hr IV Q24H [facility] Last Admin: 07/27/20 17:07 Dose: 250 mls/hr Documented by: Insulin Glargine (Lantus) 60 unit SUBCUT BEDTIME [facility] Last Admin: 07/27/20 20:56 Dose: 60 units Documented by: Losartan Potassium (Cozaar) 25 mg PO DAILY [facility] Last Admin: 07/28/20 08:50 Dose: 25 mg Documented by: Magnesium Oxide (Magnesium Oxide) 500 mg PO DAILY [facility] Last Admin: 07/28/20 08:49 Dose: 500 mg Documented by: Montelukast Sodium (Singulair) 10 mg PO BEDTIME [facility] Last Admin: 07/27/20 20:55 Dose: 10 mg Documented by: Non-Formulary Medication (Canagliflozin [Invokana]) 300 mg PO DAILY [facility] Non-Formulary Medication (Fluticasone Furoate [Flonase Sensimist]) 1 mcg NASBOTH BID PRN PRN Reason: Allergies Non-Formulary Medication (Cetirizine [Zyrtec]) 10 mg PO DAILY [facility] Ondansetron HCl (Zofran) 4 mg IVPUSH Q6H PRN PRN Reason: Nausea/Vomiting Prednisone (Prednisone) 5 mg PO DAILY [facility] Last Admin: 07/28/20 08:50 Dose: 5 mg Documented by: Prednisone (Prednisone) 40 mg PO WITHBREAKFAST [facility] Stop: 07/29/20 08:00 Last Admin: 07/28/20 08:49 Dose: 40 mg Documented by: Sodium Chloride (Saline Flush) 10 ml FLUSH ASDIRECTED PRN PRN Reason: Keep Vein Open Tamsulosin HCl (Flomax) 0.4 mg PO BEDTIME [facility] Last Admin: 07/27/20 20:55 Dose: 0.4 mg Documented by: Discontinued Medications Methylprednisolone Sodium Succinate (Solu-Medrol) 125 mg IVPUSH ONETIME ONE Stop: 07/26/20 16:31 Last Admin: 07/26/20 18:02 Dose: 125 mg Documented by: Metoclopramide HCl (Reglan) 10 mg IVPUSH ONETIME ONE Stop: 07/26/20 16:31 Last Admin: 07/26/20 17:58 Dose: 10 mg Documented by: Potassium Chloride (Klor-Con 10) 40 meq PO ONETIME ONE Stop: 07/27/20 09:23 Last Admin: 07/27/20 11:28 Dose: 40 meq Documented by: - Exam General: Reports: Alert, Oriented, Cooperative HEENT: Reports: Pupils Equal, Pupils Reactive, EOMI, Mucous Membr. Moist/[place] Lungs: Reports: Clear to Auscultation, Normal Respiratory Effort Cardiovascular: Reports: Regular Rate, Regular Rhythm GI/Abdominal Exam: Normal Bowel Sounds, Soft, Non-Tender, No Organomegaly, No Distention, No Abnormal Bruit, No Mass, Pelvis Stable
== END 2020-07-28 10:57 ==
LOC: DL.MS 15:39
PROVIDERS: ADMIT Hospitalist; ATTEND Hospitalist
DX: R51.9 Headache, unspecified (principal); E11.22 Type 2 diabetes mellitus with diabetic chronic kidney disease; I12.9 Hypertensive chronic kidney disease with stage 1 through stage 4 chronic kidney disease, or unspecified chronic kidney disease; N18.9 Chronic kidney disease, unspecified; E66.9 Obesity, unspecified; Z90.49 Acquired absence of other specified parts of digestive tract; Z88.8 Allergy status to other drugs, medicaments and biological substances; Z91.040 Latex allergy status; Z79.899 Other long term (current) drug therapy; Z79.82 Long term (current) use of aspirin; Z79.4 Long term (current) use of insulin; E78.00 Pure hypercholesterolemia, unspecified; Z87.891 Personal history of nicotine dependence; Z86.19 Personal history of other infectious and parasitic diseases
CPT/HCPCS: 36415; 71045; 80053; 81001; 82962; 85025; 96365; 96366; 96367; 96372; 96375; 96376; A9270-GY; G0378; J0456; J0696; J1650; J1815-GY; J2765; J2930; J7030; J7050; J7512

== ENCOUNTER 2021-05-25 13:42 | Emergency (ER) | payer MEDICARE, BC ==
[2021-05-25] MEDS ORDERED: Codeine/Promethazine 10-6.25 MG/5 ML Syrup 5 ML UD Cup PO ONE (13:43)
[2021-05-25] MEDS ORDERED: Dexamethasone 4 MG/ML SDV IM ONE (17:27)
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
[2021-05-25] MEDS ORDERED: Codeine/Promethazine 10-6.25 MG/5 ML Syrup 5 ML UD Cup ONE (17:40)
== END 2021-05-25 17:59 | disposition home or self-care (01) ==
LOC: DL.ED 13:42
DX: U07.1 COVID-19 (principal); E78.00 Pure hypercholesterolemia, unspecified; I10 Essential (primary) hypertension; E11.649 Type 2 diabetes mellitus with hypoglycemia without coma; E11.10 Type 2 diabetes mellitus with ketoacidosis without coma; E66.9 Obesity, unspecified; Z68.30 Body mass index [BMI] 30.0-30.9, adult; Z91.040 Latex allergy status; Z88.8 Allergy status to other drugs, medicaments and biological substances; Z79.82 Long term (current) use of aspirin; Z79.84 Long term (current) use of oral hypoglycemic drugs; Z79.899 Other long term (current) drug therapy
CPT/HCPCS: 96372; 99283; A9270; J1100; U0002

== ENCOUNTER 2021-10-18 11:45 | Emergency (ER) | payer MEDICARE, BC ==
[2021-10-18] MEDS ORDERED: Sodium Chloride 0.9% 10 ML Syringe FLUSH PRN (11:54)
[2021-10-18] MEDS ORDERED: Ondansetron 4 MG/2 ML SDV IM ONE (12:12)
[2021-10-18] MEDS ORDERED: Ondansetron 4 MG/2 ML SDV ONE (12:13)
[2021-10-18 13:23] LABS: ANION GAP 12.5 mEq/L (7-13); CHLORIDE,CL 99 mmol/L (98-107); SODIUM,NA 139 mmol/L (136-145)
[2021-10-18] MEDS ORDERED: Acetaminophen 500 MG Tab PO ONE (13:55)
== END 2021-10-18 15:30 | disposition home or self-care (01) ==
LOC: DL.ED 11:45
DX: S06.0X0A Concussion without loss of consciousness, initial encounter (principal); S89.91XA Unspecified injury of right lower leg, initial encounter; E78.00 Pure hypercholesterolemia, unspecified; I10 Essential (primary) hypertension; E11.10 Type 2 diabetes mellitus with ketoacidosis without coma; E11.649 Type 2 diabetes mellitus with hypoglycemia without coma; E66.9 Obesity, unspecified; Z68.33 Body mass index [BMI] 33.0-33.9, adult; Z91.040 Latex allergy status; Z88.8 Allergy status to other drugs, medicaments and biological substances; Z79.82 Long term (current) use of aspirin; Z79.4 Long term (current) use of insulin; Z79.899 Other long term (current) drug therapy; Z20.822 Contact with and (suspected) exposure to COVID-19; W01.0XXA Fall on same level from slipping, tripping and stumbling without subsequent striking against object, initial encounter; Y92.009 Unspecified place in unspecified non-institutional (private) residence as the place of occurrence of the external cause
CPT/HCPCS: 36415; 70450; 73562-RT; 80053; 80307; 83605; 83735; 84443; 85025; 85610; 86140; 93005; 93010; 96372; 99284; 99284-25; A9270-GY; J2405; J3490; U0002

== ENCOUNTER 2022-07-22 12:02 | Inpatient (IN) | payer MEDICARE, BC ==
[2022-07-22 09:26] LABS: AMPHETAMINES,URINE NEGATIVE (NEGATIVE); BARBITURATES,URINE NEGATIVE (NEGATIVE); BENZODIAZEPINE,URINE NEGATIVE (NEGATIVE); MDMA (ECSTASY), URINE NEGATIVE (NEGATIVE); METHADONE,URINE NEGATIVE (NEGATIVE); METHAMPHETAMINES,URINE NEGATIVE (NEGATIVE); OPIATES,URINE NEGATIVE (NEGATIVE); OXYCODONE,URINE NEGATIVE (NEGATIVE); PHENCYCLIDINE,URINE NEGATIVE (NEGATIVE); TCA,URINE NEGATIVE (NEGATIVE)
[2022-07-22 09:42] LABS: ANION GAP 12.1 mEq/L (7-13)
[~2022-07-22 12:02] MED LIST changes: +Sodium Chloride 0.9% 1,000 ML IV ONE; -Sodium Chloride 0.9% 10 ML Syringe FLUSH PRN
[2022-07-22] MEDS ORDERED: Acetaminophen 325 MG Tab PO ONE (12:06)
[2022-07-22] MEDS ORDERED: Albuterol/Ipratropium 3.0-0.5 MG/3 ML Neb Soln NEB PRN (18:25)
[2022-07-22] MEDS ORDERED: HYDROmorphone 0.5 MG/0.5 ML Syringe IVPUSH PRN (18:25)
[2022-07-22] MEDS ORDERED: Ondansetron 4 MG/2 ML SDV IVPUSH PRN (18:25)
[2022-07-22] MEDS ORDERED: 50% Dextrose in Water 50 ML Syringe IVPUSH PRN (18:39)
[2022-07-22] MEDS ORDERED: Glucagon,Human Recombinant 1 MG Vial IM PRN (18:39)
[2022-07-22] MEDS ORDERED: Magnesium Sulfate/Water 2 GM in Premix Bag 1 BAG IV ONE (18:41)
[2022-07-22] MEDS: Acetaminophen 325 MG Tab PO PRN (18:42)
[2022-07-22] MEDS ORDERED: Diclofenac Sodium 1% Gel 100 GM Tube TOP PRN (19:43)
[2022-07-22] MEDS ORDERED: Fluticasone NASAL Spray 16 GM Bottle NASBOTH PRN (19:43)
[2022-07-22] MEDS ORDERED: guaiFENesin 100 MG/5 ML Soln 5 ML UD Cup PO PRN (19:43)
[2022-07-22] MEDS ORDERED: VANCOMYCIN IV SCH (19:45)
[2022-07-22] MEDS ORDERED: SODIUM CHLORIDE 0.9% IV SCH (19:45)
[2022-07-22] MEDS ORDERED: Vancomycin 2 GM in Sodium Chloride 0.9% 500 ML IV ONE (20:15)
[2022-07-22] MEDS: Piperacillin/Tazobactam 3.375 GM in Sodium Chloride 0.9% 100 ML IV SCH ×2 (20:25→23:25)
[2022-07-22] MEDS: Lactated Ringers 1,000 ML IV SCH (20:35)
[2022-07-22] MEDS: Montelukast 10 MG Tab PO SCH (21:22)
[2022-07-22] MEDS: Ascorbic Acid 500 MG Tab PO SCH (21:22)
[2022-07-22] MEDS: Tamsulosin 0.4 MG Cap.ER PO SCH (21:22)
[2022-07-22] MEDS: Saccharomyces Boulardii (Probiotic) 250 MG Cap PO SCH (21:22)
[2022-07-23] MEDS: Acetaminophen 325 MG Tab PO PRN ×2 (00:23→15:46)
[2022-07-23] MEDS: Lactated Ringers 1,000 ML IV SCH ×2 (02:57→07:40)
[2022-07-23] MEDS: Acetaminophen/HYDROcodone 325-5 MG Tab PO PRN ×3 (03:32→23:24)
[2022-07-23] MEDS: Piperacillin/Tazobactam 3.375 GM in Sodium Chloride 0.9% 100 ML IV SCH ×4 (05:15→23:25)
[2022-07-23 06:14] LABS: CORONAVIRUS COVID-19 NAA NEGATIVE (NEGATIVE); RESPIRATORY SYNCYTIAL VIR NAA NEGATIVE (NEGATIVE)
[2022-07-23 07:21] LABS: ANION GAP 10.6 mEq/L (7-13)
[2022-07-23] MEDS: Insulin Lispro 100 Units/ML 3 ML Vial SUBCUT SCH ×3 (08:26→17:35)
[2022-07-23] MEDS: Saccharomyces Boulardii (Probiotic) 250 MG Cap PO SCH ×2 (08:27→22:02)
[2022-07-23] MEDS: Oxybutynin 5 MG Tab.ER PO SCH (08:28)
[2022-07-23] MEDS: Loratadine 10 MG Tab PO SCH (08:28)
[2022-07-23] MEDS: Fenofibrate Nanocrystallized 145 MG Tab PO SCH (08:28)
[2022-07-23] MEDS: Omeprazole 20 MG Cap.CR PO SCH ×2 (08:28→17:36)
[2022-07-23] MEDS: Ascorbic Acid 500 MG Tab PO SCH ×2 (08:28→22:02)
[2022-07-23] MEDS: Finasteride 5 MG Tab PO SCH (08:28)
[2022-07-23] MEDS: Aspirin 325 MG Tab.EC PO SCH (08:29)
[2022-07-23] MEDS: Folic Acid 1 MG Tab PO SCH (08:29)
[2022-07-23] MEDS: predniSONE 10 MG Tab PO SCH (08:29)
[2022-07-23] MEDS ORDERED: Furosemide 20 MG/2 ML VIAL IVPUSH ONE (10:00)
[2022-07-23] MEDS: VANCOmycin 1.5 GM/300 ML 1.5 GM in Premix Bag 1 BAG IV SCH (10:58)
[2022-07-23] MEDS ORDERED: Heparin Sodium 5,000 Units/ML Vial IVPUSH ONE (12:00)
[2022-07-23] MEDS: Heparin Sodium/0.45% NaCl 25,000 UNITS/500 ML BAG IV SCH (12:27)
[2022-07-23] MEDS ORDERED: Hydrochlorothiazide/Triamterene 25-37.5 Tab PO ONE (18:00)
[2022-07-23] MEDS: Montelukast 10 MG Tab PO SCH (22:02)
[2022-07-23] MEDS: Tamsulosin 0.4 MG Cap.ER PO SCH (22:03)
[2022-07-24] MEDS: Heparin Sodium/0.45% NaCl 25,000 UNITS/500 ML BAG IV SCH ×2 (00:52→14:45)
[2022-07-24] MEDS: Piperacillin/Tazobactam 3.375 GM in Sodium Chloride 0.9% 100 ML IV SCH ×2 (06:23→12:54)
[2022-07-24 07:09] LABS: ANION GAP 9.8 mEq/L (7-13)
[2022-07-24] MEDS: Saccharomyces Boulardii (Probiotic) 250 MG Cap PO SCH ×2 (08:21→20:17)
[2022-07-24] MEDS: predniSONE 10 MG Tab PO SCH (08:21)
[2022-07-24] MEDS: Folic Acid 1 MG Tab PO SCH (08:21)
[2022-07-24] MEDS: Loratadine 10 MG Tab PO SCH (08:22)
[2022-07-24] MEDS: Oxybutynin 5 MG Tab.ER PO SCH (08:22)
[2022-07-24] MEDS: Aspirin 325 MG Tab.EC PO SCH (08:22)
[2022-07-24] MEDS: Finasteride 5 MG Tab PO SCH (08:22)
[2022-07-24] MEDS: Omeprazole 20 MG Cap.CR PO SCH ×2 (08:22→17:16)
[2022-07-24] MEDS: Ascorbic Acid 500 MG Tab PO SCH ×2 (08:23→21:21)
[2022-07-24] MEDS: Insulin Lispro 100 Units/ML 3 ML Vial SUBCUT SCH ×3 (08:23→17:15)
[2022-07-24] MEDS: Fenofibrate Nanocrystallized 145 MG Tab PO SCH (08:23)
[2022-07-24] MEDS: Acetaminophen/HYDROcodone 325-5 MG Tab PO PRN ×2 (08:25→20:19)
[2022-07-24] MEDS: VANCOmycin 1.5 GM/300 ML 1.5 GM in Premix Bag 1 BAG IV SCH (09:45)
[2022-07-24] MEDS ORDERED: DULAGLUTIDE 1.5 MG/0.5 ML SQ SCH (18:30)
[2022-07-24] MEDS: Montelukast 10 MG Tab PO SCH (20:19)
[2022-07-24] MEDS: Tamsulosin 0.4 MG Cap.ER PO SCH (20:19)
[2022-07-24] MEDS ORDERED: Hydrochlorothiazide/Triamterene 25-37.5 Tab PO ONE (21:00)
[2022-07-24] MEDS: Piperacillin/Tazobactam 4.5 GM in Sodium Chloride 0.9% 100 ML IV SCH (21:21)
[2022-07-24] MEDS: Iron Polysaccharides Complex 150 MG Cap PO SCH (21:21)
[2022-07-25] MEDS ORDERED: Heparin Sodium 5,000 Units/ML Vial IVPUSH ONE (02:06)
[2022-07-25] MEDS ORDERED: Heparin Sodium 5,000 Units/ML Vial ONE (02:18)
[2022-07-25] MEDS: Heparin Sodium/0.45% NaCl 25,000 UNITS/500 ML BAG IV SCH (03:12)
[2022-07-25] MEDS: Piperacillin/Tazobactam 4.5 GM in Sodium Chloride 0.9% 100 ML IV SCH ×3 (05:17→21:56)
[2022-07-25 07:20] LABS: ANION GAP 12.7 mEq/L (7-13)
[2022-07-25] MEDS: Insulin Lispro 100 Units/ML 3 ML Vial SUBCUT SCH ×3 (08:01→16:53)
[2022-07-25] MEDS: Saccharomyces Boulardii (Probiotic) 250 MG Cap PO SCH ×2 (08:03→21:32)
[2022-07-25] MEDS: Omeprazole 20 MG Cap.CR PO SCH ×2 (08:03→17:26)
[2022-07-25] MEDS: Loratadine 10 MG Tab PO SCH (08:03)
[2022-07-25] MEDS: Lisinopril 5 MG Tab PO SCH (08:04)
[2022-07-25] MEDS: Iron Polysaccharides Complex 150 MG Cap PO SCH ×2 (08:08→21:33)
[2022-07-25] MEDS: predniSONE 10 MG Tab PO SCH (08:08)
[2022-07-25] MEDS: Fenofibrate Nanocrystallized 145 MG Tab PO SCH (08:08)
[2022-07-25] MEDS: Folic Acid 1 MG Tab PO SCH (08:09)
[2022-07-25] MEDS: Ascorbic Acid 500 MG Tab PO SCH ×2 (08:09→21:33)
[2022-07-25] MEDS: Oxybutynin 5 MG Tab.ER PO SCH (08:09)
[2022-07-25] MEDS: Aspirin 325 MG Tab.EC PO SCH (08:09)
[2022-07-25] MEDS: Finasteride 5 MG Tab PO SCH (08:09)
[2022-07-25] MEDS: VANCOmycin 1.5 GM/300 ML 1.5 GM in Premix Bag 1 BAG IV SCH (09:13)
[2022-07-25] MEDS: Cephalexin 500 MG Cap PO SCH ×3 (12:40→23:36)
[2022-07-25] MEDS: Tamsulosin 0.4 MG Cap.ER PO SCH (21:33)
[2022-07-25] MEDS: Apixaban 5 MG Tab PO SCH (21:33)
[2022-07-25] MEDS: Montelukast 10 MG Tab PO SCH (21:33)
[2022-07-26] MEDS: Piperacillin/Tazobactam 4.5 GM in Sodium Chloride 0.9% 100 ML IV SCH (06:26)
[2022-07-26] MEDS: Cephalexin 500 MG Cap PO SCH ×3 (06:27→17:07)
[2022-07-26 07:51] LABS: ANION GAP 10.4 mEq/L (7-13)
[2022-07-26] MEDS ORDERED: Methotrexate 2.5 MG Tab PO SCH (09:00)
[2022-07-26] MEDS: Fenofibrate Nanocrystallized 145 MG Tab PO SCH (09:31)
[2022-07-26] MEDS: Aspirin 325 MG Tab.EC PO SCH (09:31)
[2022-07-26] MEDS: Loratadine 10 MG Tab PO SCH (09:32)
[2022-07-26] MEDS: Apixaban 5 MG Tab PO SCH ×2 (09:32→21:06)
[2022-07-26] MEDS: Saccharomyces Boulardii (Probiotic) 250 MG Cap PO SCH ×2 (09:32→21:06)
[2022-07-26] MEDS: Ascorbic Acid 500 MG Tab PO SCH ×2 (09:32→21:06)
[2022-07-26] MEDS: Folic Acid 1 MG Tab PO SCH (09:32)
[2022-07-26] MEDS: Omeprazole 20 MG Cap.CR PO SCH ×2 (09:32→17:07)
[2022-07-26] MEDS: Hydrochlorothiazide 25 MG Tab PO SCH (09:33)
[2022-07-26] MEDS: Lisinopril 5 MG Tab PO SCH (09:34)
[2022-07-26] MEDS: predniSONE 10 MG Tab PO SCH (09:34)
[2022-07-26] MEDS: Finasteride 5 MG Tab PO SCH (09:34)
[2022-07-26] MEDS: Iron Polysaccharides Complex 150 MG Cap PO SCH ×2 (09:34→21:06)
[2022-07-26] MEDS: Oxybutynin 5 MG Tab.ER PO SCH (09:35)
[2022-07-26] MEDS: VANCOmycin 1.5 GM/300 ML 1.5 GM in Premix Bag 1 BAG IV SCH (09:35)
[2022-07-26] MEDS: Insulin Lispro 100 Units/ML 3 ML Vial SUBCUT SCH ×3 (09:37→16:55)
[2022-07-26] MEDS ORDERED: Potassium Chloride 10 MEQ Tab.ER PO ONE (11:00)
[2022-07-26] MEDS ORDERED: Furosemide 20 MG/2 ML VIAL IVPUSH ONE (17:00)
[2022-07-26] MEDS: Acetaminophen/HYDROcodone 325-5 MG Tab PO PRN ×2 (17:10→21:10)
[2022-07-26] MEDS: Tamsulosin 0.4 MG Cap.ER PO SCH (21:06)
[2022-07-26] MEDS: Montelukast 10 MG Tab PO SCH (21:06)
[2022-07-27] MEDS: Cephalexin 500 MG Cap PO SCH ×3 (00:03→12:06)
[2022-07-27 07:06] LABS: ANION GAP 7.7 mEq/L (7-13)
[2022-07-27] MEDS: Lisinopril 5 MG Tab PO SCH (08:32)
[2022-07-27] MEDS: Loratadine 10 MG Tab PO SCH (08:32)
[2022-07-27] MEDS: Saccharomyces Boulardii (Probiotic) 250 MG Cap PO SCH (08:32)
[2022-07-27] MEDS: Hydrochlorothiazide 25 MG Tab PO SCH (08:33)
[2022-07-27] MEDS: Iron Polysaccharides Complex 150 MG Cap PO SCH (08:33)
[2022-07-27] MEDS: Oxybutynin 5 MG Tab.ER PO SCH (08:33)
[2022-07-27] MEDS: predniSONE 10 MG Tab PO SCH (08:33)
[2022-07-27] MEDS: Finasteride 5 MG Tab PO SCH (08:33)
[2022-07-27] MEDS: Folic Acid 1 MG Tab PO SCH (08:33)
[2022-07-27] MEDS: Fenofibrate Nanocrystallized 145 MG Tab PO SCH (08:33)
[2022-07-27] MEDS: Omeprazole 20 MG Cap.CR PO SCH (08:33)
[2022-07-27] MEDS: Apixaban 5 MG Tab PO SCH (08:34)
[2022-07-27] MEDS: Aspirin 325 MG Tab.EC PO SCH (08:34)
[2022-07-27] MEDS: Ascorbic Acid 500 MG Tab PO SCH (08:35)
[2022-07-27] MEDS: Insulin Lispro 100 Units/ML 3 ML Vial SUBCUT SCH ×2 (08:35→12:05)
[2022-07-27] MEDS ORDERED: glyBURIDE 5 MG Tab PO SCH (10:00)
[2022-07-27] MEDS: CANAGLIFLOZIN PO SCH (12:39)
== END 2022-07-27 14:09 | disposition swing bed (61) | DRG 871 ==
LOC: DL.ED 12:02 → DL.MS 17:36 → DL.ED 18:09
PROVIDERS: ADMIT Internal Medicine; ATTEND Internal Medicine
DX: R50.9 Fever, unspecified (principal); A41.9 Sepsis, unspecified organism; R19.7 Diarrhea, unspecified; G92.8 Other toxic encephalopathy; E11.9 Type 2 diabetes mellitus without complications; L03.113 Cellulitis of right upper limb; E78.00 Pure hypercholesterolemia, unspecified; E66.9 Obesity, unspecified; D84.9 Immunodeficiency, unspecified; E87.1 Hypo-osmolality and hyponatremia; N17.9 Acute kidney failure, unspecified; E87.20 Acidosis, unspecified; I82.A11 Acute embolism and thrombosis of right axillary vein; I82.621 Acute embolism and thrombosis of deep veins of right upper extremity; Z20.822 Contact with and (suspected) exposure to COVID-19; D50.9 Iron deficiency anemia, unspecified; E11.65 Type 2 diabetes mellitus with hyperglycemia; E88.09 Other disorders of plasma-protein metabolism, not elsewhere classified; R65.20 Severe sepsis without septic shock; E83.42 Hypomagnesemia; E86.0 Dehydration; E87.8 Other disorders of electrolyte and fluid balance, not elsewhere classified; H54.7 Unspecified visual loss; E78.5 Hyperlipidemia, unspecified; I10 Essential (primary) hypertension; Z86.16 Personal history of COVID-19; K21.9 Gastro-esophageal reflux disease without esophagitis; K52.9 Noninfective gastroenteritis and colitis, unspecified; K42.9 Umbilical hernia without obstruction or gangrene; M19.90 Unspecified osteoarthritis, unspecified site; M85.80 Other specified disorders of bone density and structure, unspecified site; M54.9 Dorsalgia, unspecified; Z96.659 Presence of unspecified artificial knee joint; K76.0 Fatty (change of) liver, not elsewhere classified; G40.909 Epilepsy, unspecified, not intractable, without status epilepticus; G89.29 Other chronic pain; K57.90 Diverticulosis of intestine, part unspecified, without perforation or abscess without bleeding; Z91.040 Latex allergy status; Z88.8 Allergy status to other drugs, medicaments and biological substances; Z79.84 Long term (current) use of oral hypoglycemic drugs; Z79.4 Long term (current) use of insulin; Z79.82 Long term (current) use of aspirin; Z79.52 Long term (current) use of systemic steroids; Z79.899 Other long term (current) drug therapy; Z90.49 Acquired absence of other specified parts of digestive tract
CPT/HCPCS: 0241U; 36415; 51702; 70450; 71045; 80053; 80143; 80179; 80202; 80305; 81001; 82009; 82140; 82150; 82947; 83605; 83690; 83735; 83880; 84145; 84484; 85025; 85379; 85610; 85651; 85730; 86140; 87040; 93005; 93970; 93971; 97110; 97116; 97165; 0240U; A9270-GY; J1170; J1644; J1815-GY; J1940; J2543; J3370; J3475; J7030; J7040; J7120; J7512; J8610

== ENCOUNTER 2022-07-27 10:35 | Inpatient (IN) | payer MEDICARE, BC ==
[2022-07-27] MEDS ORDERED: Ondansetron 4 MG/2 ML SDV IVPUSH PRN (13:05)
[2022-07-27] MEDS ORDERED: guaiFENesin 100 MG/5 ML Soln 5 ML UD Cup PO PRN ×2 (13:05→18:58)
[2022-07-27] MEDS ORDERED: HYDROmorphone 0.5 MG/0.5 ML Syringe IVPUSH PRN (13:05)
[2022-07-27] MEDS ORDERED: Fluticasone NASAL Spray 16 GM Bottle NASBOTH PRN (13:05)
[2022-07-27] MEDS ORDERED: 50% Dextrose in Water 50 ML Syringe IVPUSH PRN (13:05)
[2022-07-27] MEDS ORDERED: Diclofenac Sodium 1% Gel 100 GM Tube TOP PRN (13:05)
[2022-07-27] MEDS ORDERED: Acetaminophen 325 MG Tab PO PRN (13:05)
[2022-07-27] MEDS ORDERED: Glucagon,Human Recombinant 1 MG Vial IM PRN ×2 (13:05)
[2022-07-27] MEDS ORDERED: Albuterol/Ipratropium 3.0-0.5 MG/3 ML Neb Soln NEB PRN (13:05)
[2022-07-27] MEDS: Omeprazole 20 MG Cap.CR PO SCH (17:03)
[2022-07-27] MEDS: Cephalexin 500 MG Cap PO SCH ×2 (17:03→23:46)
[2022-07-27] MEDS: Insulin Lispro 100 Units/ML 3 ML Vial SUBCUT SCH (17:05)
[2022-07-27] MEDS ORDERED: glyBURIDE 5 MG Tab PO SCH (18:00)
[2022-07-27] MEDS ORDERED: InFLIXimab (Remicade) 100 MG Vial IV SCH (19:00)
[2022-07-27] MEDS ORDERED: DULAGLUTIDE 1.5 MG/0.5 ML SQ SCH (19:00)
[2022-07-27] MEDS: Acetaminophen/HYDROcodone 325-5 MG Tab PO PRN (20:05)
[2022-07-27] MEDS ORDERED: Tamsulosin 0.4 MG Cap.ER PO SCH (21:00)
[2022-07-27] MEDS: Ascorbic Acid 500 MG Tab PO SCH (21:00)
[2022-07-27] MEDS: Iron Polysaccharides Complex 150 MG Cap PO SCH (21:00)
[2022-07-27] MEDS ORDERED: Montelukast 10 MG Tab PO SCH (21:00)
[2022-07-27] MEDS: Apixaban 5 MG Tab PO SCH (21:01)
[2022-07-27] MEDS: Montelukast 10 MG Tab PO SCH (21:01)
[2022-07-27] MEDS: Tamsulosin 0.4 MG Cap.ER PO SCH (21:01)
[2022-07-27] MEDS: Insulin Glarg,Human.Rec.Analog 100 Unit/ML SUBCUT SCH (21:04)
[2022-07-27] MEDS: Saccharomyces Boulardii (Probiotic) 250 MG Cap PO SCH (21:17)
[2022-07-28] MEDS: Cephalexin 500 MG Cap PO SCH ×4 (06:13→23:09)
[2022-07-28] MEDS: Acetaminophen/HYDROcodone 325-5 MG Tab PO PRN ×2 (06:17→21:16)
[2022-07-28] MEDS: Losartan 25 MG Tab PO SCH (08:59)
[2022-07-28] MEDS: Finasteride 5 MG Tab PO SCH (08:59)
[2022-07-28] MEDS: Aspirin 325 MG Tab.EC PO SCH (09:00)
[2022-07-28] MEDS ORDERED: Oxybutynin 5 MG Tab.ER PO SCH (09:00)
[2022-07-28] MEDS: Furosemide 40 MG Tab PO SCH (09:00)
[2022-07-28] MEDS ORDERED: Aspirin 325 MG Tab.EC PO SCH (09:00)
[2022-07-28] MEDS ORDERED: Hydrochlorothiazide 25 MG Tab PO SCH (09:00)
[2022-07-28] MEDS ORDERED: Lisinopril 5 MG Tab PO SCH (09:00)
[2022-07-28] MEDS ORDERED: Loratadine 10 MG Tab PO SCH (09:00)
[2022-07-28] MEDS: predniSONE 10 MG Tab PO SCH (09:01)
[2022-07-28] MEDS: Apixaban 5 MG Tab PO SCH ×2 (09:01→21:16)
[2022-07-28] MEDS: Fenofibrate Nanocrystallized 145 MG Tab PO SCH (09:01)
[2022-07-28] MEDS: Omeprazole 20 MG Cap.CR PO SCH ×2 (09:01→17:09)
[2022-07-28] MEDS: Folic Acid 1 MG Tab PO SCH (09:01)
[2022-07-28] MEDS: Iron Polysaccharides Complex 150 MG Cap PO SCH ×2 (09:01→21:16)
[2022-07-28] MEDS: Ascorbic Acid 500 MG Tab PO SCH ×2 (09:02→21:15)
[2022-07-28] MEDS: Insulin Lispro 100 Units/ML 3 ML Vial SUBCUT SCH ×3 (09:02→17:09)
[2022-07-28] MEDS: Insulin Glarg,Human.Rec.Analog 100 Unit/ML SUBCUT SCH (09:04)
[2022-07-28] MEDS: Saccharomyces Boulardii (Probiotic) 250 MG Cap PO SCH ×2 (09:15→21:29)
[2022-07-28] MEDS ORDERED: DULAGLUTIDE 1.5 MG/0.5 ML SQ ONE (14:00)
[2022-07-28] MEDS: MIRABEGRON 25 MG PO SCH (14:47)
[2022-07-28] MEDS: Tamsulosin 0.4 MG Cap.ER PO SCH (21:15)
[2022-07-28] MEDS: Montelukast 10 MG Tab PO SCH (21:16)
[2022-07-28] MEDS: INSULIN DEGLUDEC 200 UNIT/ML SUBCUT SCH (22:02)
[2022-07-29] MEDS: Cephalexin 500 MG Cap PO SCH (06:20)
[2022-07-29] MEDS: Insulin Lispro 100 Units/ML 3 ML Vial SUBCUT SCH ×3 (09:14→17:16)
[2022-07-29] MEDS: Losartan 25 MG Tab PO SCH (09:14)
[2022-07-29] MEDS: predniSONE 10 MG Tab PO SCH (09:15)
[2022-07-29] MEDS: Finasteride 5 MG Tab PO SCH (09:15)
[2022-07-29] MEDS: Apixaban 5 MG Tab PO SCH ×2 (09:15→20:11)
[2022-07-29] MEDS: Ascorbic Acid 500 MG Tab PO SCH ×2 (09:16→20:14)
[2022-07-29] MEDS: Furosemide 40 MG Tab PO SCH (09:16)
[2022-07-29] MEDS: Omeprazole 20 MG Cap.CR PO SCH ×2 (09:17→17:15)
[2022-07-29] MEDS: Iron Polysaccharides Complex 150 MG Cap PO SCH ×2 (09:17→20:12)
[2022-07-29] MEDS: Loratadine 10 MG Tab PO SCH (09:17)
[2022-07-29] MEDS: Aspirin 325 MG Tab.EC PO SCH (09:17)
[2022-07-29] MEDS: Fenofibrate Nanocrystallized 145 MG Tab PO SCH (09:18)
[2022-07-29] MEDS: Folic Acid 1 MG Tab PO SCH (09:18)
[2022-07-29] MEDS: Saccharomyces Boulardii (Probiotic) 250 MG Cap PO SCH ×2 (09:19→20:13)
[2022-07-29] MEDS: MIRABEGRON 25 MG PO SCH (09:21)
[2022-07-29] MEDS: INSULIN DEGLUDEC 200 UNIT/ML SUBCUT SCH ×2 (09:25→20:19)
[2022-07-29] MEDS: Acetaminophen/HYDROcodone 325-5 MG Tab PO PRN ×2 (12:31→20:15)
[2022-07-29] MEDS: Tamsulosin 0.4 MG Cap.ER PO SCH (20:13)
[2022-07-29] MEDS: Montelukast 10 MG Tab PO SCH (20:14)
[2022-07-30] MEDS: Insulin Lispro 100 Units/ML 3 ML Vial SUBCUT SCH (08:11)
[2022-07-30] MEDS: Saccharomyces Boulardii (Probiotic) 250 MG Cap PO SCH (08:26)
[2022-07-30] MEDS: Iron Polysaccharides Complex 150 MG Cap PO SCH (08:26)
[2022-07-30] MEDS: Aspirin 325 MG Tab.EC PO SCH (08:27)
[2022-07-30] MEDS: Fenofibrate Nanocrystallized 145 MG Tab PO SCH (08:27)
[2022-07-30] MEDS: Ascorbic Acid 500 MG Tab PO SCH (08:27)
[2022-07-30] MEDS: Finasteride 5 MG Tab PO SCH (08:27)
[2022-07-30] MEDS: Omeprazole 20 MG Cap.CR PO SCH (08:27)
[2022-07-30] MEDS: Loratadine 10 MG Tab PO SCH (08:27)
[2022-07-30] MEDS: Losartan 25 MG Tab PO SCH (08:28)
[2022-07-30] MEDS: Apixaban 5 MG Tab PO SCH (08:28)
[2022-07-30] MEDS: Furosemide 40 MG Tab PO SCH (08:29)
[2022-07-30] MEDS: Folic Acid 1 MG Tab PO SCH (08:29)
[2022-07-30] MEDS: predniSONE 10 MG Tab PO SCH (08:29)
[2022-07-30] MEDS: INSULIN DEGLUDEC 200 UNIT/ML SUBCUT SCH (08:30)
[2022-07-30] MEDS: MIRABEGRON 25 MG PO SCH (08:30)
[2022-07-30] MEDS: Acetaminophen/HYDROcodone 325-5 MG Tab PO PRN (09:38)
[2022-08-02] MEDS ORDERED: Methotrexate 2.5 MG Tab PO SCH (09:00)
== END 2022-07-30 12:10 | disposition home health service (06) | DRG 948 ==
LOC: DL.MS 13:53
PROVIDERS: ADMIT Internal Medicine; ATTEND Internal Medicine
DX: R53.81 Other malaise (principal); L03.113 Cellulitis of right upper limb; D84.9 Immunodeficiency, unspecified; I82.621 Acute embolism and thrombosis of deep veins of right upper extremity; E87.1 Hypo-osmolality and hyponatremia; K21.9 Gastro-esophageal reflux disease without esophagitis; D50.9 Iron deficiency anemia, unspecified; Z86.16 Personal history of COVID-19; K57.90 Diverticulosis of intestine, part unspecified, without perforation or abscess without bleeding; K42.9 Umbilical hernia without obstruction or gangrene; M54.9 Dorsalgia, unspecified; G89.29 Other chronic pain; G40.909 Epilepsy, unspecified, not intractable, without status epilepticus; E83.42 Hypomagnesemia; H54.7 Unspecified visual loss; I10 Essential (primary) hypertension; E78.5 Hyperlipidemia, unspecified; E88.09 Other disorders of plasma-protein metabolism, not elsewhere classified; Z79.899 Other long term (current) drug therapy; Z79.4 Long term (current) use of insulin; Z79.52 Long term (current) use of systemic steroids; Z91.040 Latex allergy status; Z88.8 Allergy status to other drugs, medicaments and biological substances; Z79.51 Long term (current) use of inhaled steroids
CPT/HCPCS: 82947; 97110-GO; 97110-GP; 97116-GP; 97161-GP; 97165-GO; 97535-GO; A9270-GY; J1815-GY; J7512

== ENCOUNTER 2022-09-19 07:25 | Inpatient (IN) | payer MEDICARE, BC ==
[2022-09-19] MEDS ORDERED: Ibuprofen 800 MG Tab PO ONE (07:30)
[2022-09-19] MEDS ORDERED: Acetaminophen 500 MG Tab PO ONE (07:30)
[2022-09-19] MEDS ORDERED: Sodium Chloride 0.9% 1,000 ML IV ONE (07:33)
[2022-09-19] MEDS: Sodium Chloride 0.9% 10 ML Syringe FLUSH PRN (07:47)
[2022-09-19 08:10] LABS: CORONAVIRUS COVID-19 NAA NEGATIVE (NEGATIVE); RESPIRATORY SYNCYTIAL VIR NAA NEGATIVE (NEGATIVE)
[2022-09-19 08:16] LABS: ANION GAP 12.8 mEq/L (7-13); CHLORIDE,CL 98 mmol/L (98-107); SODIUM,NA 135 mmol/L (136-145)
[2022-09-19 08:19] LABS: ESTIMATED GFR 63 mL/min (>=60)
[2022-09-19] MEDS ORDERED: Ciprofloxacin in D5W 400 MG in Premix Bag 1 BAG IV ONE ×2 (08:21)
[2022-09-19] MEDS ORDERED: cefTRIAXone 2 GM Vial IVPUSH ONE (08:21)
[2022-09-19] MEDS ORDERED: oxyCODONE 5 MG Tab PO PRN (09:47)
[2022-09-19] MEDS ORDERED: Sodium Chloride 0.9% 10 ML Syringe FLUSH PRN (09:47)
[2022-09-19] MEDS ORDERED: Ondansetron 4 MG Tab.DIS PO PRN (09:47)
[2022-09-19] MEDS ORDERED: Acetaminophen 325 MG Tab PO PRN (09:47)
[2022-09-19] MEDS ORDERED: Bisacodyl 10 MG Supp RECTAL PRN (09:52)
[2022-09-19] MEDS ORDERED: Albuterol 6.7 GM Inhaler INH PRN (09:52)
[2022-09-19] MEDS ORDERED: 50% Dextrose in Water 50 ML Syringe IVPUSH PRN (09:58)
[2022-09-19] MEDS ORDERED: Glucagon,Human Recombinant 1 MG Vial IM PRN (09:58)
[2022-09-19] MEDS: Insulin Lispro 100 Units/ML 3 ML Vial SUBCUT SCH ×3 (12:07→21:06)
[2022-09-19] MEDS ORDERED: Apixaban 5 MG Tab PO SCH (21:00)
[2022-09-19] MEDS ORDERED: Tamsulosin 0.4 MG Cap.ER PO SCH (21:00)
[2022-09-19] MEDS: Montelukast 10 MG Tab PO SCH (21:03)
[2022-09-19] MEDS: Insulin Glarg,Human.Rec.Analog 100 Unit/ML SUBCUT SCH (21:03)
[2022-09-20] MEDS ORDERED: predniSONE 20 MG Tab PO SCH (08:00)
[2022-09-20 08:43] LABS: ANION GAP 12.5 mEq/L (7-13)
[2022-09-20] MEDS ORDERED: Finasteride 5 MG Tab PO SCH (09:00)
[2022-09-20] MEDS ORDERED: Furosemide 40 MG Tab PO SCH (09:00)
[2022-09-20] MEDS: cefTRIAXone 2 GM Vial IVPUSH SCH (09:02)
[2022-09-20] MEDS: Folic Acid 1 MG Tab PO SCH (09:06)
[2022-09-20] MEDS: Omeprazole 20 MG Cap.CR PO SCH (09:07)
[2022-09-20] MEDS: Furosemide 20 MG Tab PO SCH (09:07)
[2022-09-20] MEDS: Losartan 25 MG Tab PO SCH (09:07)
[2022-09-20] MEDS: Aspirin 325 MG Tab.EC PO SCH (09:07)
[2022-09-20] MEDS: Insulin Lispro 100 Units/ML 3 ML Vial SUBCUT SCH ×4 (09:10→21:30)
[2022-09-20] MEDS ORDERED: Levofloxacin/Dextrose 5%-Water 500 MG in Premix Bag 1 BAG IV SCH (10:00)
[2022-09-20] MEDS: Montelukast 10 MG Tab PO SCH (21:01)
[2022-09-20] MEDS: Insulin Glarg,Human.Rec.Analog 100 Unit/ML SUBCUT SCH (21:02)
[2022-09-21 06:46] LABS: ANION GAP 10.8 mEq/L (7-13)
[2022-09-21] MEDS: Omeprazole 20 MG Cap.CR PO SCH (08:27)
[2022-09-21] MEDS: Furosemide 20 MG Tab PO SCH (08:27)
[2022-09-21] MEDS: Aspirin 325 MG Tab.EC PO SCH (08:27)
[2022-09-21] MEDS: Losartan 25 MG Tab PO SCH (08:27)
[2022-09-21] MEDS: Folic Acid 1 MG Tab PO SCH (08:27)
[2022-09-21] MEDS: Insulin Lispro 100 Units/ML 3 ML Vial SUBCUT SCH ×2 (08:28→12:11)
[2022-09-21] MEDS: Sodium Chloride 0.9% 10 ML Syringe FLUSH PRN (08:30)
[2022-09-21] MEDS: cefTRIAXone 2 GM Vial IVPUSH SCH (08:30)
[2022-09-21] MEDS ORDERED: predniSONE 10 MG Tab PO SCH (09:00)
== END 2022-09-21 14:55 | disposition home or self-care (01) | DRG 872 ==
LOC: DL.ED 07:25 → DL.MS 09:32
PROVIDERS: ADMIT Internal Medicine; ATTEND Internal Medicine
DX: A41.59 Other Gram-negative sepsis (principal); D61.818 Other pancytopenia; A41.9 Sepsis, unspecified organism; E86.0 Dehydration; Z20.822 Contact with and (suspected) exposure to COVID-19; E11.9 Type 2 diabetes mellitus without complications; I10 Essential (primary) hypertension; M06.9 Rheumatoid arthritis, unspecified; D84.821 Immunodeficiency due to drugs; N39.0 Urinary tract infection, site not specified; E66.9 Obesity, unspecified; N40.0 Benign prostatic hyperplasia without lower urinary tract symptoms; N32.81 Overactive bladder; D63.8 Anemia in other chronic diseases classified elsewhere; R65.20 Severe sepsis without septic shock; E11.65 Type 2 diabetes mellitus with hyperglycemia; E78.5 Hyperlipidemia, unspecified; K21.9 Gastro-esophageal reflux disease without esophagitis; D50.9 Iron deficiency anemia, unspecified; K57.90 Diverticulosis of intestine, part unspecified, without perforation or abscess without bleeding; M94.8X9 Other specified disorders of cartilage, unspecified sites; M19.90 Unspecified osteoarthritis, unspecified site; E78.00 Pure hypercholesterolemia, unspecified; H54.7 Unspecified visual loss; J45.909 Unspecified asthma, uncomplicated; G40.909 Epilepsy, unspecified, not intractable, without status epilepticus; Z86.718 Personal history of other venous thrombosis and embolism; Z79.01 Long term (current) use of anticoagulants; Z87.442 Personal history of urinary calculi; Z79.899 Other long term (current) drug therapy; Z91.040 Latex allergy status; Z86.16 Personal history of COVID-19; Z88.8 Allergy status to other drugs, medicaments and biological substances; Z79.4 Long term (current) use of insulin; Z79.52 Long term (current) use of systemic steroids; Z90.49 Acquired absence of other specified parts of digestive tract; Z96.659 Presence of unspecified artificial knee joint
CPT/HCPCS: 0241U; 36415; 71045; 80048; 80053; 81001; 82947; 83036; 83605; 83880; 84145; 84443; 84484; 85025; 86140; 87040; 87086; 87088; 87186; 93971; 96361; 96374; 96375; 99285; 99285-25; A9270-GY; C1758; J0696; J0744; J1815-GY; J3490; J7030; J7512

== ENCOUNTER 2023-03-08 14:43 | Emergency (ER) | payer MEDICARE, BC ==
[2023-03-08 15:52] LABS: BASOPHILS PERCENT AUTO 0.4 % (0.0-1.0); EOSINOPHILS PERCENT AUTO 0.1 % (1.0-3.0); HEMATOCRIT 29.2 % (40.0-54.0); HEMOGLOBIN 9.3 g/dL (14.0-18.0); LYMPHOCYTES PERCENT AUTO 4.9 % (20.5-50.1); MEAN CORPUSCULAR HEMOGLOBIN 33.7 pg (27.0-34.0); MEAN CORPUSCULAR HGB CONC 31.8 g/dL (33.0-35.0); MEAN CORPUSCULAR VOLUME 105.8 fL (80-100); MONOCYTES PERCENT AUTO 6.7 % (2-8); NEUTROPHILS PERCENT AUTO 87.9 % (42.2-75.2); PLATELET COUNT,PLT 65 10^3/uL (150-450); RED BLOOD CELL COUNT 2.76 10^6/uL (4.6-6.2); WHITE BLOOD CELL COUNT,WBC 10.2 10^3/uL (5.0-10.0)
[2023-03-08 16:26] LABS: ALBUMIN 2.7 g/dL (3.4-5.0); ANION GAP 12.8 mEq/L (7-13); BILIRUBIN TOTAL 0.3 mg/dL (0.2-1.0); BUN/CREATININE RATIO 12.6 (No establ ref range); CALCIUM 8.7 mg/dL (8.5-10.1); CREATININE 1.27 mg/dL (0.70-1.30); EST CRCL DRUG DOSING (CG) 51.61 mL/min; POTASSIUM,K 4.8 mmol/L (3.5-5.1); PROTEIN TOTAL,TP 7.1 g/dL (6.4-8.2)
[2023-03-08] MEDS ORDERED: Iopamidol 755 Mg/ML 100 ML Bottle IVPUSH ONE (16:27)
[2023-03-08 16:29] LABS: PROTHROMBIN TIME 9.8 SEC (9.0-12.0); PTT,PARTIAL THROMBOPLSTIN TIME 26.3 SEC (22.0-34.0)
[2023-03-08 16:31] LABS: LACTIC ACID 3.1 mmol/L (0.4-2.0)
[2023-03-08 16:34] LABS: A/G RATIO 0.61; C-REACTIVE PROTEIN 24.6 mg/dL (0.0-0.9)
[2023-03-08] MEDS ORDERED: Sodium Chloride 0.9% 1,000 ML IV ONE (17:22)
[2023-03-08] MEDS ORDERED: cefTRIAXone 2 GM Vial IVPUSH ONE (17:22)
[2023-03-08] MEDS ORDERED: Azithromycin 250 MG Tab PO ONE (17:22)
== END 2023-03-08 20:01 ==
LOC: DL.ED 14:43
DX: J18.9 Pneumonia, unspecified organism (principal); J90 Pleural effusion, not elsewhere classified; R04.2 Hemoptysis; I10 Essential (primary) hypertension; E11.10 Type 2 diabetes mellitus with ketoacidosis without coma; I25.10 Atherosclerotic heart disease of native coronary artery without angina pectoris; E78.00 Pure hypercholesterolemia, unspecified; J44.9 Chronic obstructive pulmonary disease, unspecified; E66.9 Obesity, unspecified; Z68.30 Body mass index [BMI] 30.0-30.9, adult; Z91.040 Latex allergy status; Z88.8 Allergy status to other drugs, medicaments and biological substances; Z86.16 Personal history of COVID-19; Z20.822 Contact with and (suspected) exposure to COVID-19
CPT/HCPCS: 36415; 71275; 80053; 83605; 84484; 85025; 85379; 85610; 85730; 86140; 93005; 93010; 96374; 99285; A9270; J0696; J7030; Q9967; U0002

== ENCOUNTER 2023-07-12 20:15 | Inpatient (IN) | payer MEDICARE, BC ==
[2023-07-12] MEDS ORDERED: Acetaminophen 500 MG Tab PO ONE (20:20)
[2023-07-12 20:29] LABS: BASOPHILS PERCENT AUTO 1.9 % (0.0-1.0); EOSINOPHILS PERCENT AUTO 0.8 % (1.0-3.0); HEMOGLOBIN 10.8 g/dL (14.0-18.0); LYMPHOCYTES PERCENT AUTO 9.7 % (20.5-50.1); MEAN CORPUSCULAR HGB CONC 31.8 g/dL (33.0-35.0); MEAN CORPUSCULAR VOLUME 100.9 fL (80-100); MONOCYTES PERCENT AUTO 1.9 % (2-8); NEUTROPHILS PERCENT AUTO 85.7 % (42.2-75.2); PLATELET COUNT,PLT 110 10^3/uL (150-450); RED BLOOD CELL COUNT 3.37 10^6/uL (4.6-6.2); WHITE BLOOD CELL COUNT,WBC 5.3 10^3/uL (5.0-10.0)
[2023-07-12 20:51] LABS: A/G RATIO 0.79; ALANINE AMINOTRANSFERASE,ALT 23 U/L (16-63); ALBUMIN 3.1 g/dL (3.4-5.0); ALKALINE PHOSPHATASE 57 U/L (46-116); ANION GAP 13.8 mEq/L (7-13); ASPARTATE AMNIOTRANSFERASE,AST 16 U/L (15-37); BILIRUBIN TOTAL 0.7 mg/dL (0.2-1.0); BLOOD UREA NITROGEN,BUN 12 mg/dL (7-18); C-REACTIVE PROTEIN 7.86 ng/dL (<=0.50); CALCIUM 8.4 mg/dL (8.5-10.1); CARBON DIOXIDE,CO2 26 mmol/L (21-32); CHLORIDE,CL 98 mmol/L (98-107); CREATININE 1.09 mg/dL (0.70-1.30); EST CRCL DRUG DOSING (CG) 59.27 mL/min; ESTIMATED GFR 72 mL/min (>=60); ETHANOL BLOOD MEDICAL < 3 mg/dL (0); GLUCOSE RANDOM 184 mg/dL (70-99); LACTIC ACID 1.8 mmol/L (0.4-2.0); POTASSIUM,K 3.8 mmol/L (3.5-5.1); SODIUM,NA 134 mmol/L (136-145)
[2023-07-12] MEDS ORDERED: Sodium Chloride 0.9% 1,000 ML IV ONE (20:52)
[2023-07-12 21:09] LABS: CORONAVIRUS COVID-19 NAA NEGATIVE (NEGATIVE); INFLUENZA A NAA NEGATIVE (NEGATIVE); INFLUENZA B NAA NEGATIVE (NEGATIVE); RESPIRATORY SYNCYTIAL VIR NAA NEGATIVE (NEGATIVE)
[2023-07-12] MEDS ORDERED: Levofloxacin/Dextrose 5%-Water 750 MG in Premix Bag 1 BAG IV ONE (21:21)
[2023-07-12 21:52] LABS: PROTHROMBIN TIME 10.4 SEC (9.0-12.0); PTT,PARTIAL THROMBOPLSTIN TIME 26.5 SEC (22.0-34.0)
[2023-07-12] MEDS ORDERED: Ondansetron 4 MG/2 ML SDV IVPUSH PRN (23:13)
[2023-07-12] MEDS ORDERED: Sennosides/Docusate Sodium 50-8.6 MG Tab PO PRN (23:13)
[2023-07-12] MEDS ORDERED: Magnesium Hydroxide 400 MG/5 ML Susp 30 ML Cup PO PRN (23:13)
[2023-07-12] MEDS ORDERED: Albuterol/Ipratropium 3.0-0.5 MG/3 ML Neb Soln NEB PRN (23:13)
[2023-07-12] MEDS ORDERED: HYDROmorphone 0.5 MG/0.5 ML Syringe IVPUSH PRN (23:13)
[2023-07-12] MEDS ORDERED: Polyethylene Glycol 3350 Powder 17 GM Packet PO PRN (23:13)
[2023-07-12] MEDS ORDERED: Acetaminophen/oxyCODONE 325-5 MG Tab PO PRN (23:13)
[2023-07-12] MEDS ORDERED: hydrALAZINE 20 MG/ML SDV IVPUSH PRN (23:21)
[2023-07-12] MEDS ORDERED: Metoprolol Tartrate 5 MG/5 ML SDV IVPUSH PRN (23:21)
[2023-07-12] MEDS ORDERED: 50% Dextrose in Water 50 ML Syringe IVPUSH PRN (23:24)
[2023-07-12] MEDS ORDERED: Glucagon,Human Recombinant 1 MG Vial IM PRN (23:24)
[2023-07-12] MEDS ORDERED: guaiFENesin/Dextromethorphan 100-10 MG/5 ML Soln 5 ML Cup PO PRN (23:27)
[2023-07-12] MEDS ORDERED: MVI, Adult with Vitamin K 10 ML, Folic Acid 1 MG, Thiamine 100 MG in Lactated Ringers 1... IV ONE ×4 (23:29)
[2023-07-12] MEDS ORDERED: cefTRIAXone 2 GM Vial IVPUSH ONE (23:30)
[2023-07-12] MEDS ORDERED: Methotrexate 2.5 MG Tab PO SCH (23:30)
[2023-07-12] MEDS ORDERED: Apixaban 5 MG Tab PO STA (23:49)
[2023-07-13 06:46] LABS: APPEARANCE,URINE CLEAR (CLEAR); BILIRUBIN,URINE NEGATIVE (NEGATIVE); COLOR,URINE YELLOW (YELLOW); GLUCOSE,URINE NEGATIVE (NEGATIVE); KETONES,URINE NEGATIVE (NEGATIVE); LEUKOCYTE ESTERASE,URINE NEGATIVE (NEGATIVE); NITRITE,URINE NEGATIVE (NEGATIVE); OCCULT BLOOD,URINE TRACE-INTACT (NEGATIVE); PROTEIN,URINE 100 (NEGATIVE); UROBILINOGEN,URINE 0.2 mg/dL (0.2-1.0)
[2023-07-13 06:51] LABS: HEMOGLOBIN 9.7 g/dL (14.0-18.0); MEAN CORPUSCULAR HGB CONC 31.3 g/dL (33.0-35.0); MEAN CORPUSCULAR VOLUME 102.3 fL (80-100); PLATELET COUNT,PLT 109 10^3/uL (150-450); RED BLOOD CELL COUNT 3.03 10^6/uL (4.6-6.2); WHITE BLOOD CELL COUNT,WBC 3.9 10^3/uL (5.0-10.0)
[2023-07-13 07:05] LABS: BASOPHILS PERCENT AUTO 1.3 % (0.0-1.0); LYMPHOCYTES PERCENT AUTO 10.2 % (20.5-50.1); MONOCYTES PERCENT AUTO 1.5 % (2-8)
[2023-07-13 07:08] LABS: ALBUMIN 2.7 g/dL (3.4-5.0); BILIRUBIN TOTAL 0.4 mg/dL (0.2-1.0); BUN/CREATININE RATIO 10.7 (No establ ref range); C-REACTIVE PROTEIN 14.05 ng/dL (<=0.50); CALCIUM 8.3 mg/dL (8.5-10.1); CREATININE 1.12 mg/dL (0.70-1.30); EST CRCL DRUG DOSING (CG) 57.68 mL/min; MAGNESIUM 1.6 mg/dL (1.8-2.4); PROTEIN TOTAL,TP 6.5 g/dL (6.4-8.2)
[2023-07-13 07:11] LABS: BACTERIA,URINE NOT SEEN /HPF (0-FEW/HPF); EPITHELIAL CELLS,URINE RARE /HPF (NOT SEEN); MUCUS,URINE NOT SEEN /LPF (NOT SEEN); RBC,URINE 0-5 /HPF (0-5); WBC,URINE NOT SEEN /HPF (0-5/HPF)
[2023-07-13 07:16] LABS: A/G RATIO 0.71
[2023-07-13 08:05] LABS: BAND PERCENT MAN 11 %; EOSINOPHILS PERCENT MAN 1 % (1-3); LYMPHOCYTES PERCENT MAN 10 % (20-50); MONOCYTES PERCENT MAN 1 % (2-8); SEG NEUTROPHILS PERCENT MAN 77 % (42-75)
[2023-07-13] MEDS: guaiFENesin 600 MG Tab.ER PO SCH ×2 (08:17→21:24)
[2023-07-13] MEDS: Folic Acid 1 MG Tab PO SCH (08:18)
[2023-07-13] MEDS: predniSONE 10 MG Tab PO SCH (08:18)
[2023-07-13] MEDS: Saccharomyces Boulardii (Probiotic) 250 MG Cap PO SCH ×2 (08:18→21:23)
[2023-07-13] MEDS: Apixaban 5 MG Tab PO SCH ×2 (08:18→21:24)
[2023-07-13] MEDS: Insulin Lispro 100 Units/ML 3 ML Vial SUBCUT SCH ×3 (08:19→17:16)
[2023-07-13] MEDS: Insulin Glarg,Human.Rec.Analog 100 Unit/ML 10 ML Vial SUBCUT SCH ×2 (08:20→21:26)
[2023-07-13] MEDS: cefTRIAXone 1 GM Vial IVPUSH SCH (08:22)
[2023-07-13] MEDS: Azithromycin 500 MG in Sodium Chloride 0.9% 250 ML IV SCH (08:27)
[2023-07-13] MEDS ORDERED: FLU (Fluad Quad) 2023-24(65UP)/MF59C/PF 60 MCG/0.5 ML Syringe IM ONE (10:00)
[2023-07-13] MEDS ORDERED: Magnesium Sulfate/Water 2 GM in Premix Bag 1 BAG IV ONE (10:03)
[2023-07-13] MEDS: Acetaminophen 325 MG Tab PO PRN (10:31)
[2023-07-13] MEDS: Multivitamins with Iron/Calcium/Folic Acid/Minerals Tab PO SCH (21:24)
[2023-07-13] MEDS: Thiamine 100 MG Tab PO SCH (21:24)
[2023-07-14] MEDS: Acetaminophen 325 MG Tab PO PRN ×2 (05:05→21:20)
[2023-07-14 06:28] LABS: HEMATOCRIT 27.3 % (40.0-54.0); HEMOGLOBIN 8.4 g/dL (14.0-18.0); MEAN CORPUSCULAR HEMOGLOBIN 31.3 pg (27.0-34.0); MEAN CORPUSCULAR HGB CONC 30.8 g/dL (33.0-35.0); MEAN CORPUSCULAR VOLUME 101.9 fL (80-100); PLATELET COUNT,PLT 116 10^3/uL (150-450); RED BLOOD CELL COUNT 2.68 10^6/uL (4.6-6.2); WHITE BLOOD CELL COUNT,WBC 2.3 10^3/uL (5.0-10.0)
[2023-07-14 06:44] LABS: BASOPHILS PERCENT AUTO 3.1 % (0.0-1.0); EOSINOPHILS PERCENT AUTO 1.7 % (1.0-3.0); LYMPHOCYTES PERCENT AUTO 18.3 % (20.5-50.1); MONOCYTES PERCENT AUTO 1.7 % (2-8); NEUTROPHILS PERCENT AUTO 75.2 % (42.2-75.2)
[2023-07-14 06:55] LABS: ALBUMIN 2.6 g/dL (3.4-5.0); ANION GAP 9.7 mEq/L (7-13); BILIRUBIN TOTAL 0.4 mg/dL (0.2-1.0); BUN/CREATININE RATIO 12.9 (No establ ref range); C-REACTIVE PROTEIN 13.6 ng/dL (<=0.50); CALCIUM 8.2 mg/dL (8.5-10.1); CREATININE 1.01 mg/dL (0.70-1.30); EST CRCL DRUG DOSING (CG) 63.96 mL/min; MAGNESIUM 2.1 mg/dL (1.8-2.4); POTASSIUM,K 3.7 mmol/L (3.5-5.1); PROTEIN TOTAL,TP 6.2 g/dL (6.4-8.2)
[2023-07-14 06:58] LABS: A/G RATIO 0.72
[2023-07-14 07:16] LABS: BAND PERCENT MAN 12 %; LYMPHOCYTES PERCENT MAN 17 % (20-50); SEG NEUTROPHILS PERCENT MAN 71 % (42-75)
[2023-07-14] MEDS: Insulin Lispro 100 Units/ML 3 ML Vial SUBCUT SCH ×3 (09:57→17:30)
[2023-07-14] MEDS: Insulin Glarg,Human.Rec.Analog 100 Unit/ML 10 ML Vial SUBCUT SCH ×2 (09:57→21:11)
[2023-07-14] MEDS: Azithromycin 500 MG in Sodium Chloride 0.9% 250 ML IV SCH (09:58)
[2023-07-14] MEDS: cefTRIAXone 1 GM Vial IVPUSH SCH (09:58)
[2023-07-14] MEDS: Folic Acid 1 MG Tab PO SCH (10:00)
[2023-07-14] MEDS: guaiFENesin 600 MG Tab.ER PO SCH ×2 (10:00→21:09)
[2023-07-14] MEDS: Apixaban 5 MG Tab PO SCH ×2 (10:00→21:09)
[2023-07-14] MEDS: Saccharomyces Boulardii (Probiotic) 250 MG Cap PO SCH ×2 (10:00→21:09)
[2023-07-14] MEDS ORDERED: FLU (Fluad Quad) 2023-24(65UP)/MF59C/PF 60 MCG/0.5 ML Syringe IM ONE (10:00)
[2023-07-14] MEDS: predniSONE 10 MG Tab PO SCH (10:00)
[2023-07-14] MEDS: Multivitamins with Iron/Calcium/Folic Acid/Minerals Tab PO SCH (21:09)
[2023-07-14] MEDS: Thiamine 100 MG Tab PO SCH (21:09)
[2023-07-14] MEDS ORDERED: Furosemide 20 MG Tab PO PRN (21:50)
[2023-07-14] MEDS ORDERED: Apixaban 5 MG Tab PO STA (21:52)
[2023-07-15 06:13] LABS: BASOPHILS PERCENT AUTO 1.3 % (0.0-1.0); EOSINOPHILS PERCENT AUTO 2.7 % (1.0-3.0); HEMATOCRIT 26.3 % (40.0-54.0); HEMOGLOBIN 8.2 g/dL (14.0-18.0); LYMPHOCYTES PERCENT AUTO 20.5 % (20.5-50.1); MEAN CORPUSCULAR HEMOGLOBIN 31.7 pg (27.0-34.0); MEAN CORPUSCULAR HGB CONC 31.2 g/dL (33.0-35.0); MEAN CORPUSCULAR VOLUME 101.5 fL (80-100); NEUTROPHILS PERCENT AUTO 71.5 % (42.2-75.2); PLATELET COUNT,PLT 141 10^3/uL (150-450); RED BLOOD CELL COUNT 2.59 10^6/uL (4.6-6.2); WHITE BLOOD CELL COUNT,WBC 2.2 10^3/uL (5.0-10.0)
[2023-07-15 06:35] LABS: A/G RATIO 0.77; ALBUMIN 2.7 g/dL (3.4-5.0); ANION GAP 10.7 mEq/L (7-13); BILIRUBIN TOTAL 0.3 mg/dL (0.2-1.0); BUN/CREATININE RATIO 17.4 (No establ ref range); C-REACTIVE PROTEIN 5.57 ng/dL (<=0.50); CALCIUM 8.4 mg/dL (8.5-10.1); CREATININE 0.92 mg/dL (0.70-1.30); EST CRCL DRUG DOSING (CG) 70.22 mL/min; MAGNESIUM 2.1 mg/dL (1.8-2.4); POTASSIUM,K 3.7 mmol/L (3.5-5.1); PROTEIN TOTAL,TP 6.2 g/dL (6.4-8.2)
[2023-07-15] MEDS ORDERED: Omeprazole 20 MG Cap.CR PO SCH (07:30)
[2023-07-15] MEDS ORDERED: metFORMIN 500 MG Tab PO SCH (08:00)
[2023-07-15] MEDS ORDERED: Loratadine 10 MG Tab PO SCH (09:00)
[2023-07-15] MEDS ORDERED: Aspirin 81 MG Tab.Chew PO SCH (09:00)
[2023-07-15] MEDS ORDERED: Apixaban 5 MG Tab PO SCH (09:00)
[2023-07-15] MEDS ORDERED: Vitamin B6-pyridOXINE 100 MG Tab PO SCH (09:00)
[2023-07-15] MEDS: Insulin Lispro 100 Units/ML 3 ML Vial SUBCUT SCH ×2 (10:11→13:48)
[2023-07-15] MEDS: cefTRIAXone 1 GM Vial IVPUSH SCH (10:13)
[2023-07-15] MEDS: Insulin Glarg,Human.Rec.Analog 100 Unit/ML 10 ML Vial SUBCUT SCH (10:13)
[2023-07-15] MEDS: guaiFENesin 600 MG Tab.ER PO SCH (10:15)
[2023-07-15] MEDS: Saccharomyces Boulardii (Probiotic) 250 MG Cap PO SCH (10:15)
[2023-07-15] MEDS: Folic Acid 1 MG Tab PO SCH (10:16)
[2023-07-15] MEDS: predniSONE 10 MG Tab PO SCH (10:16)
[2023-07-15] MEDS: Azithromycin 500 MG in Sodium Chloride 0.9% 250 ML IV SCH (10:16)
[2023-07-18] MEDS ORDERED: Methotrexate 2.5 MG Tab PO SCH (09:00)
== END 2023-07-15 14:00 | disposition home or self-care (01) | DRG 871 ==
LOC: DL.ED 20:15 → UNDOADMIN 22:05 → DL.MS 22:05
PROVIDERS: ADMIT Internal Medicine; ATTEND Internal Medicine
DX: A41.9 Sepsis, unspecified organism (principal); J18.9 Pneumonia, unspecified organism; D64.9 Anemia, unspecified; J44.9 Chronic obstructive pulmonary disease, unspecified; D84.9 Immunodeficiency, unspecified; E11.9 Type 2 diabetes mellitus without complications; E87.1 Hypo-osmolality and hyponatremia; J90 Pleural effusion, not elsewhere classified; J44.0 Chronic obstructive pulmonary disease with (acute) lower respiratory infection; H54.7 Unspecified visual loss; I10 Essential (primary) hypertension; E78.5 Hyperlipidemia, unspecified; K21.9 Gastro-esophageal reflux disease without esophagitis; D50.9 Iron deficiency anemia, unspecified; Z20.822 Contact with and (suspected) exposure to COVID-19; M19.90 Unspecified osteoarthritis, unspecified site; G89.29 Other chronic pain; M54.9 Dorsalgia, unspecified; G40.909 Epilepsy, unspecified, not intractable, without status epilepticus; N40.0 Benign prostatic hyperplasia without lower urinary tract symptoms; E66.9 Obesity, unspecified; D69.6 Thrombocytopenia, unspecified; E11.65 Type 2 diabetes mellitus with hyperglycemia; R09.02 Hypoxemia; E78.00 Pure hypercholesterolemia, unspecified; E83.42 Hypomagnesemia; Z79.4 Long term (current) use of insulin; Z79.84 Long term (current) use of oral hypoglycemic drugs; Z79.82 Long term (current) use of aspirin; Z88.8 Allergy status to other drugs, medicaments and biological substances; Z79.899 Other long term (current) drug therapy; Z98.890 Other specified postprocedural states; Z79.52 Long term (current) use of systemic steroids; Z86.16 Personal history of COVID-19; Z91.041 Radiographic dye allergy status; Z91.040 Latex allergy status; Z86.711 Personal history of pulmonary embolism; Z11.52 Encounter for screening for COVID-19; Z79.01 Long term (current) use of anticoagulants; Z98.49 Cataract extraction status, unspecified eye; Z90.49 Acquired absence of other specified parts of digestive tract; Z68.34 Body mass index [BMI] 34.0-34.9, adult
CPT/HCPCS: 0241U; 36415; 71045; 80053; 80307; 81001; 82947; 83605; 83735; 83880; 84145; 84484; 85025; 85610; 85730; 86140; 87040; 90694; 93005; 93010; 94010; 94060; 94668; 94760; 96361; 96365; 97165-GO; 99223; 99232; 99233; 99238; 99284-25; 99285; A9270-GY; G0008; J0456; J0696; J1815-GY; J1956; J3411; J3475; J3490; J7030; J7050; J7120; J7512; J7620-GY

== ENCOUNTER 2023-08-16 00:11 | Inpatient (IN) | payer MEDICARE, BC ==
[2023-08-16] MEDS ORDERED: Metoclopramide 10 MG/2 ML SDV IVPUSH ONE (00:18)
[2023-08-16] MEDS ORDERED: diphenhydrAMINE 50 MG/ML SDV IVPUSH ONE (00:18)
[2023-08-16] MEDS ORDERED: Butorphanol 2 MG/ML SDV IVPUSH ONE (00:19)
[2023-08-16] MEDS ORDERED: Sodium Chloride 0.9% 1,000 ML IV ONE (00:19)
[2023-08-16 00:59] LABS: BASOPHILS PERCENT AUTO 0.4 % (0.0-1.0); EOSINOPHILS PERCENT AUTO 0.8 % (1.0-3.0); HEMATOCRIT 32.7 % (40.0-54.0); HEMOGLOBIN 10.3 g/dL (14.0-18.0); LYMPHOCYTES PERCENT AUTO 9.3 % (20.5-50.1); MEAN CORPUSCULAR HEMOGLOBIN 32.4 pg (27.0-34.0); MEAN CORPUSCULAR HGB CONC 31.5 g/dL (33.0-35.0); MEAN CORPUSCULAR VOLUME 102.8 fL (80-100); MONOCYTES PERCENT AUTO 8.9 % (2-8); NEUTROPHILS PERCENT AUTO 80.6 % (42.2-75.2); PLATELET COUNT,PLT 77 10^3/uL (150-450); RED BLOOD CELL COUNT 3.18 10^6/uL (4.6-6.2); WHITE BLOOD CELL COUNT,WBC 7.6 10^3/uL (5.0-10.0)
[2023-08-16 01:21] LABS: LACTIC ACID 2.9 mmol/L (0.4-2.0)
[2023-08-16 01:22] LABS: ALBUMIN 2.8 g/dL (3.4-5.0); ANION GAP 13.8 mEq/L (7-13); BILIRUBIN TOTAL 0.3 mg/dL (0.2-1.0); BUN/CREATININE RATIO 10.8 (No establ ref range); C-REACTIVE PROTEIN 18.95 ng/dL (<=0.50); CALCIUM 8.5 mg/dL (8.5-10.1); CREATININE 1.11 mg/dL (0.70-1.30); EST CRCL DRUG DOSING (CG) 58.2 mL/min; MAGNESIUM 1.8 mg/dL (1.8-2.4); POTASSIUM,K 3.8 mmol/L (3.5-5.1); PROTEIN TOTAL,TP 7.3 g/dL (6.4-8.2); TSH ULTRASENSITIVE 4.09 uIU/mL (0.36-3.74)
[2023-08-16 01:29] LABS: A/G RATIO 0.62
[2023-08-16 01:35] LABS: CORONAVIRUS COVID-19 NAA NEGATIVE (NEGATIVE); INFLUENZA A NAA NEGATIVE (NEGATIVE); INFLUENZA B NAA NEGATIVE (NEGATIVE); RESPIRATORY SYNCYTIAL VIR NAA NEGATIVE (NEGATIVE)
[2023-08-16 01:59] LABS: SEDIMENTATION RATE MANUAL 96 mm/hr (0-15)
[2023-08-16 02:26] LABS: PROTHROMBIN TIME 10.2 SEC (9.0-12.0); PTT,PARTIAL THROMBOPLSTIN TIME 33.4 SEC (22.0-34.0)
[2023-08-16] MEDS ORDERED: Piperacillin/Tazobactam 4.5 GM in Sodium Chloride 0.9% 100 ML IV ONE (04:00)
[2023-08-16 06:27] LABS: APPEARANCE,URINE CLEAR (CLEAR); BILIRUBIN,URINE NEGATIVE (NEGATIVE); COLOR,URINE YELLOW (YELLOW); GLUCOSE,URINE NEGATIVE (NEGATIVE); KETONES,URINE NEGATIVE (NEGATIVE); LEUKOCYTE ESTERASE,URINE NEGATIVE (NEGATIVE); NITRITE,URINE NEGATIVE (NEGATIVE); OCCULT BLOOD,URINE SMALL (NEGATIVE); PROTEIN,URINE 100 (NEGATIVE); UROBILINOGEN,URINE 0.2 mg/dL (0.2-1.0)
[2023-08-16 06:41] LABS: MUCUS,URINE MANY /LPF (NOT SEEN); WBC,URINE 0-5 /HPF (0-5/HPF)
[2023-08-16 06:42] LABS: AMORPHOUS SEDIMENT,URINE OCCASIONAL /HPF (NOT SEEN)
[2023-08-16 06:44] LABS: BACTERIA,URINE FEW /HPF (0-FEW/HPF)
[2023-08-16 06:49] LABS: EPITHELIAL CELLS,URINE FEW /HPF (NOT SEEN)
[2023-08-16] MEDS: Piperacillin/Tazobactam 4.5 GM in Sodium Chloride 0.9% 100 ML IV SCH ×3 (07:55→23:12)
[2023-08-16] MEDS ORDERED: Docusate Sodium 100 MG Cap PO PRN (10:33)
[2023-08-16] MEDS: Ondansetron 4 MG/2 ML SDV IVPUSH PRN ×2 (12:13→21:36)
[2023-08-16] MEDS: Acetaminophen 325 MG Tab PO PRN ×2 (15:47→21:34)
[2023-08-16] MEDS ORDERED: Loperamide 2 MG Cap PO PRN (17:59)
[2023-08-16] MEDS ORDERED: Sennosides/Docusate Sodium 50-8.6 MG Tab PO PRN (17:59)
[2023-08-16] MEDS ORDERED: Albuterol/Ipratropium 3.0-0.5 MG/3 ML Neb Soln INH PRN (17:59)
[2023-08-16] MEDS ORDERED: Bisacodyl 10 MG Supp RECTAL PRN (17:59)
[2023-08-16] MEDS ORDERED: Acetaminophen 325 MG Tab PO PRN (17:59)
[2023-08-16] MEDS ORDERED: Non-Formulary Medication 1 Each (Dulaglutide [Trulicity] 1.5 MG/0.5 ML Pen) SUBCUT SCH (18:00)
[2023-08-16] MEDS ORDERED: Albuterol 6.7 GM Inhaler INH PRN (18:53)
[2023-08-16] MEDS ORDERED: Pantoprazole 40 MG Vial IVPUSH SCH (21:00)
[2023-08-16] MEDS: Insulin Glarg,Human.Rec.Analog 100 Unit/ML 10 ML Vial SUBCUT SCH (21:21)
[2023-08-16] MEDS: Apixaban 5 MG Tab PO SCH (21:23)
[2023-08-16] MEDS: Amitriptyline 25 MG Tab PO SCH (21:24)
[2023-08-16] MEDS: predniSONE 5 MG Tab PO SCH (21:26)
[2023-08-16] MEDS: Aspirin 81 MG Tab.Chew PO SCH (21:26)
[2023-08-17] MEDS: Insulin Lispro 100 Units/ML 3 ML Vial SUBCUT SCH ×5 (08:12→17:22)
[2023-08-17] MEDS: Aspirin 81 MG Tab.Chew PO SCH (08:15)
[2023-08-17] MEDS: metFORMIN 500 MG Tab PO SCH ×2 (08:15→17:22)
[2023-08-17] MEDS: Folic Acid 1 MG Tab PO SCH (08:15)
[2023-08-17] MEDS: predniSONE 5 MG Tab PO SCH (08:15)
[2023-08-17] MEDS: Apixaban 5 MG Tab PO SCH ×2 (08:16→21:21)
[2023-08-17] MEDS: Losartan 25 MG Tab PO SCH (08:16)
[2023-08-17] MEDS: Loratadine 10 MG Tab PO SCH (08:17)
[2023-08-17] MEDS: Piperacillin/Tazobactam 4.5 GM in Sodium Chloride 0.9% 100 ML IV SCH ×3 (08:21→23:58)
[2023-08-17] MEDS ORDERED: Enoxaparin 40 MG/0.4 ML Syringe SUBCUT SCH (09:00)
[2023-08-17] MEDS: Omeprazole 20 MG Cap.CR PO SCH ×2 (10:17→16:16)
[2023-08-17] MEDS ORDERED: Sodium Chloride 0.9% 10 ML Syringe FLUSH PRN (14:16)
[2023-08-17] MEDS: Amitriptyline 25 MG Tab PO SCH (21:21)
[2023-08-17] MEDS: Insulin Glarg,Human.Rec.Analog 100 Unit/ML 10 ML Vial SUBCUT SCH (21:22)
[2023-08-17] MEDS ORDERED: Melatonin 3 MG Tab PO PRN (23:35)
[2023-08-18] MEDS: Acetaminophen 325 MG Tab PO PRN (00:06)
[2023-08-18] MEDS: Omeprazole 20 MG Cap.CR PO SCH (05:23)
[2023-08-18] MEDS: Piperacillin/Tazobactam 4.5 GM in Sodium Chloride 0.9% 100 ML IV SCH (07:59)
[2023-08-18] MEDS: Folic Acid 1 MG Tab PO SCH (08:04)
[2023-08-18] MEDS: Aspirin 81 MG Tab.Chew PO SCH (08:05)
[2023-08-18] MEDS: Apixaban 5 MG Tab PO SCH (08:05)
[2023-08-18] MEDS: Losartan 25 MG Tab PO SCH (08:05)
[2023-08-18] MEDS: metFORMIN 500 MG Tab PO SCH (08:05)
[2023-08-18] MEDS: Loratadine 10 MG Tab PO SCH (08:05)
[2023-08-18] MEDS: predniSONE 5 MG Tab PO SCH (08:05)
[2023-08-18] MEDS: Insulin Lispro 100 Units/ML 3 ML Vial SUBCUT SCH ×2 (08:08→12:21)
[2023-08-18 08:58] LABS: BASOPHILS PERCENT AUTO 0.9 % (0.0-1.0); EOSINOPHILS PERCENT AUTO 0.8 % (1.0-3.0); HEMATOCRIT 28.2 % (40.0-54.0); HEMOGLOBIN 8.7 g/dL (14.0-18.0); LYMPHOCYTES PERCENT AUTO 14.5 % (20.5-50.1); MEAN CORPUSCULAR HEMOGLOBIN 32.2 pg (27.0-34.0); MEAN CORPUSCULAR HGB CONC 30.9 g/dL (33.0-35.0); MEAN CORPUSCULAR VOLUME 104.4 fL (80-100); MONOCYTES PERCENT AUTO 10.9 % (2-8); NEUTROPHILS PERCENT AUTO 72.9 % (42.2-75.2); PLATELET COUNT,PLT 84 10^3/uL (150-450); WHITE BLOOD CELL COUNT,WBC 6.6 10^3/uL (5.0-10.0)
[2023-08-18 09:00] LABS: ALBUMIN 2.3 g/dL (3.4-5.0); ANION GAP 13.6 mEq/L (7-13); BILIRUBIN TOTAL 0.3 mg/dL (0.2-1.0); BUN/CREATININE RATIO 8.8 (No establ ref range); C-REACTIVE PROTEIN 12.63 ng/dL (<=0.50); CALCIUM 8.2 mg/dL (8.5-10.1); CREATININE 1.48 mg/dL (0.70-1.30); EST CRCL DRUG DOSING (CG) 43.65 mL/min; MAGNESIUM 1.8 mg/dL (1.8-2.4); POTASSIUM,K 3.6 mmol/L (3.5-5.1); PROTEIN TOTAL,TP 6.5 g/dL (6.4-8.2)
[2023-08-18 09:10] LABS: A/G RATIO 0.55
== END 2023-08-18 12:55 | disposition home or self-care (01) | DRG 186 ==
LOC: DL.ED 00:11 → DL.MS 02:16 → DL.ED 02:35
PROVIDERS: ADMIT Internal Medicine; ATTEND Internal Medicine
DX: J90 Pleural effusion, not elsewhere classified (principal); J18.9 Pneumonia, unspecified organism; E66.9 Obesity, unspecified; I10 Essential (primary) hypertension; E11.9 Type 2 diabetes mellitus without complications; J44.9 Chronic obstructive pulmonary disease, unspecified; E78.00 Pure hypercholesterolemia, unspecified; M19.90 Unspecified osteoarthritis, unspecified site; Z20.822 Contact with and (suspected) exposure to COVID-19; Z86.16 Personal history of COVID-19; Z79.01 Long term (current) use of anticoagulants; Z91.040 Latex allergy status; Z88.8 Allergy status to other drugs, medicaments and biological substances; Z79.899 Other long term (current) drug therapy; Z79.4 Long term (current) use of insulin; Z79.82 Long term (current) use of aspirin; Z98.49 Cataract extraction status, unspecified eye; Z98.890 Other specified postprocedural states; Z90.49 Acquired absence of other specified parts of digestive tract; Z96.659 Presence of unspecified artificial knee joint; Z11.52 Encounter for screening for COVID-19; Z68.33 Body mass index [BMI] 33.0-33.9, adult
CPT/HCPCS: 0241U; 36415; 71045; 80053; 80202; 81001; 82947; 83605; 83735; 84145; 84443; 85025; 85610; 85651; 85730; 86140; 94060; 94668; 96361; 96374; 96375; 97161-GP; 97165-GO; 97530-GO; 99284; 99285-25; A9270-GY; C9113; J0595; J1200; J1815-GY; J2405; J2543; J2765; J3370; J3490; J7030; J7050; J7512

== ENCOUNTER 2023-08-19 11:53 | Emergency (ER) | payer MEDICARE, BC ==
[2023-08-19] MEDS ORDERED: Albuterol/Ipratropium 3.0-0.5 MG/3 ML Neb Soln NEB ONE (12:57)
[2023-08-19] MEDS ORDERED: diphenhydrAMINE 50 MG Cap PO ONE (12:58)
[2023-08-19] MEDS ORDERED: Ondansetron 4 MG Tab.DIS PO ONE (12:59)
[2023-08-19] MEDS ORDERED: Acetaminophen 500 MG Tab PO ONE (13:01)
== END 2023-08-19 14:15 | disposition home or self-care (01) ==
LOC: DL.ED 11:53
DX: G44.221 Chronic tension-type headache, intractable (principal); H11.31 Conjunctival hemorrhage, right eye; I10 Essential (primary) hypertension; J44.9 Chronic obstructive pulmonary disease, unspecified; M19.90 Unspecified osteoarthritis, unspecified site; E11.9 Type 2 diabetes mellitus without complications; E66.9 Obesity, unspecified; Z68.33 Body mass index [BMI] 33.0-33.9, adult; Z91.040 Latex allergy status; Z88.4 Allergy status to anesthetic agent; Z88.8 Allergy status to other drugs, medicaments and biological substances; Z79.899 Other long term (current) drug therapy; Z79.82 Long term (current) use of aspirin; Z79.4 Long term (current) use of insulin; Z86.16 Personal history of COVID-19
CPT/HCPCS: 99283; 99284; A9270-GY; J7620-GY; Q0163

== ENCOUNTER 2023-10-28 18:27 | Emergency (ER) | payer MEDICARE, BC ==
[2023-10-28] MEDS: HYDROmorphone 1 MG/ML Syringe IM ONE (18:49)
[2023-10-28] MEDS: Orphenadrine 60 MG/2 ML Inj IM ONE (18:49)
[2023-10-28] MEDS: Lactated Ringers 1,000 ML IV ONE (20:33)
[2023-10-28 20:47] LABS: BASOPHILS PERCENT AUTO 0.9 % (0.0-1.0); EOSINOPHILS PERCENT AUTO 1.8 % (1.0-3.0); HEMATOCRIT 33.4 % (40.0-54.0); HEMOGLOBIN 10.9 g/dL (14.0-18.0); MEAN CORPUSCULAR HEMOGLOBIN 33.3 pg (27.0-34.0); MEAN CORPUSCULAR HGB CONC 32.6 g/dL (33.0-35.0); MEAN CORPUSCULAR VOLUME 102.1 fL (80-100); MONOCYTES PERCENT AUTO 8.2 % (2-8); NEUTROPHILS PERCENT AUTO 80.1 % (42.2-75.2); PLATELET COUNT,PLT 61 10^3/uL (150-450); RED BLOOD CELL COUNT 3.27 10^6/uL (4.6-6.2); WHITE BLOOD CELL COUNT,WBC 10.9 10^3/uL (5.0-10.0)
[2023-10-28 20:59] LABS: ANION GAP 13.2 mEq/L (7-13); CALCIUM 9.2 mg/dL (8.5-10.1); CREATININE 1.21 mg/dL (0.70-1.30); EST CRCL DRUG DOSING (CG) 58.77 mL/min; POTASSIUM,K 4.2 mmol/L (3.5-5.1)
[2023-10-28] MEDS: Sodium Chloride 0.9% 10 ML Syringe FLUSH PRN (21:11)
== END 2023-10-29 00:14 | disposition home or self-care (01) ==
LOC: DL.ED 18:27
DX: M79.604 Pain in right leg (principal); M79.605 Pain in left leg; E11.65 Type 2 diabetes mellitus with hyperglycemia; E11.40 Type 2 diabetes mellitus with diabetic neuropathy, unspecified; M06.9 Rheumatoid arthritis, unspecified; I10 Essential (primary) hypertension; Z79.01 Long term (current) use of anticoagulants; E78.00 Pure hypercholesterolemia, unspecified; J44.9 Chronic obstructive pulmonary disease, unspecified; E11.9 Type 2 diabetes mellitus without complications; Z86.16 Personal history of COVID-19; Z90.49 Acquired absence of other specified parts of digestive tract; Z79.899 Other long term (current) drug therapy; Z79.4 Long term (current) use of insulin; Z91.040 Latex allergy status; Z88.8 Allergy status to other drugs, medicaments and biological substances
CPT/HCPCS: 36415; 72131; 80048; 85025; 96360; 96372; 99284; 99284-25; J1170; J2360; J3490; J7120

== ENCOUNTER 2023-11-24 10:01 | Emergency (ER) | payer MEDICARE, BC ==
[2023-11-24 09:59] LABS: BASOPHILS PERCENT AUTO 0.4 % (0.0-1.0); EOSINOPHILS PERCENT AUTO 0.4 % (1.0-3.0)
[~2023-11-24 10:01] MED LIST changes: +Norepinephrine Bit/D5W Premix 250 ML IV SCH; -Sodium Chloride 0.9% 1,000 ML IV ONE
[2023-11-24 10:26] LABS: HEMATOCRIT 27.8 % (40.0-54.0); HEMOGLOBIN 8.5 g/dL (14.0-18.0); RED BLOOD CELL COUNT 2.53 10^6/uL (4.6-6.2); WHITE BLOOD CELL COUNT,WBC 31.5 10^3/uL (5.0-10.0)
[2023-11-24 10:27] LABS: LYMPHOCYTES PERCENT AUTO 7.4 % (20.5-50.1); MEAN CORPUSCULAR HEMOGLOBIN 33.6 pg (27.0-34.0); MEAN CORPUSCULAR HGB CONC 30.6 g/dL (33.0-35.0); MEAN CORPUSCULAR VOLUME 109.9 fL (80-100); MONOCYTES PERCENT AUTO 5.4 % (2-8); NEUTROPHILS PERCENT AUTO 86.4 % (42.2-75.2); PLATELET COUNT,PLT 78 10^3/uL (150-450)
[2023-11-24 10:31] LABS: O2 DELIVERY DEVICE ROOM AIR
[2023-11-24 10:32] LABS: PH,VENOUS 7.09 pH (7.32-7.43)
[2023-11-24 10:33] LABS: PCO2 VENOUS 49 mmHg (41-51); PO2 VENOUS 43 mmHg (35-42)
[2023-11-24 10:34] LABS: BASE EXCESS VENOUS -15 mmol/L ((-2)-(+3)); BICARBONATE,VENOUS 15 mmol/L (22-29); O2 SATURATION VENOUS 60 % (60-80)
[2023-11-24 10:49] LABS: ALANINE AMINOTRANSFERASE,ALT 27 U/L (16-63); ALBUMIN 2.4 g/dL (3.4-5.0); ALKALINE PHOSPHATASE 84 U/L (46-116); ANION GAP 23.2 mEq/L (7-13); ASPARTATE AMNIOTRANSFERASE,AST 39 U/L (15-37); BILIRUBIN TOTAL 0.4 mg/dL (0.2-1.0); BLOOD UREA NITROGEN,BUN 21 mg/dL (7-18); BUN/CREATININE RATIO 7.6 (No establ ref range); CALCIUM 8.5 mg/dL (8.5-10.1); CARBON DIOXIDE,CO2 18 mmol/L (21-32); CHLORIDE,CL 101 mmol/L (98-107); CREATININE 2.76 mg/dL (0.70-1.30); GLUCOSE RANDOM 279 mg/dL (70-99); MAGNESIUM 1.8 mg/dL (1.8-2.4); POTASSIUM,K 4.2 mmol/L (3.5-5.1); PROTEIN TOTAL,TP 5.8 g/dL (6.4-8.2); SODIUM,NA 138 mmol/L (136-145)
[2023-11-24 10:54] LABS: A/G RATIO 0.71; ESTIMATED GFR 24 mL/min (>=60)
[2023-11-24 11:08] LABS: INR 1.2 (0.9-1.2); PROTHROMBIN TIME 12.5 SEC (9.0-12.0)
== END 2023-11-24 10:47 | disposition expired ==
LOC: DL.ED 10:01
DX: J96.90 Respiratory failure, unspecified, unspecified whether with hypoxia or hypercapnia (principal); I10 Essential (primary) hypertension; E78.00 Pure hypercholesterolemia, unspecified; J44.9 Chronic obstructive pulmonary disease, unspecified; E11.9 Type 2 diabetes mellitus without complications; E66.9 Obesity, unspecified; Z86.16 Personal history of COVID-19; Z79.899 Other long term (current) drug therapy; Z79.4 Long term (current) use of insulin; Z79.84 Long term (current) use of oral hypoglycemic drugs; Z79.82 Long term (current) use of aspirin; Z79.01 Long term (current) use of anticoagulants; Z91.040 Latex allergy status; Z88.8 Allergy status to other drugs, medicaments and biological substances
CPT/HCPCS: 36415; 36430; 51702; 71045; 80053; 82803; 83605; 83735; 84484; 85025; 85610; 86850; 86900; 86901; 86920; 86922; 92950; 93010; 96374; 96375; 99285; 99291; P9016